=== PATIENT | female | born 1985 | race Caucasian/White ===

== ENCOUNTER 2023-11-06 15:18 | Outpatient (AMB) | payer OTHER, SELFPAY ==
--- NOTE | 2023-11-06 15:22 | MHC.PC.OV ---
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 Patient has no significant past medical history. 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 [facility] Surgical History History of section Family History Maternal Grandmother Diabetes Social History Patient Tobacco Use Status: Former Tobacco user e-Cigarette/Vaping Use: Never Used Second Hand Smoke Exposure: No service: No Current occupational status: employed Current occupation: [employer] Current occupational exposures/hazards: Yes Cognitive needs: No Hearing needs: No Vision needs: No Female Reproductive History Menstrual Date of last menstrual period: 11/06/23 Questionnaire PHQ-9 Over the last 2 weeks, how often have you been bothered by any of the following problems? 1. Little interest or pleasure in doing things: not at all 2. Feeling down, depressed, or hopeless: not at all 3. Trouble falling or staying asleep, or sleeping too much: not at all 4. Feeling tired or having little energy: more than half the days 5. Poor appetite or overeating: several days 6. Feeling bad about yourself - or that you are a failure or have let yourself or your family down: not at all 7. Trouble concentrating on things, such as reading the newspaper or watching television: not at all 8. Moving or speaking so slowly that other people could have noticed. Or the opposite - being so fidgety or restless that you have been moving around a lot more than usual: not at all 9. Thoughts that you would be better off or of hurting yourself in some way: not at all Total score: 3 Depression Screening Interpretation: Negative Depression Screening Done: Yes 31067 - PHQ-9 Billing: Yes Source: Developed by Drs. Richard Copeland, Yane Levi, Chemo Andujar and colleagues, with an educational bob from [employer]. Thrive Questionnaire Date Thrive assessed: 11/06/23 I am a: Patient What is your living situation today?: I have a steady place to live Within the past 12 months, did the food you bought not last and you didn't have the money to get more?: Never true Within the past 12 months, did you worry whether your food would run out before you got money to buy more?: Never true Do you have trouble paying for medicines?: No Do you have trouble getting transportation to medical appointments?: No Do you have trouble paying your heating and electricity bill?: No Do you have trouble taking care of your child, family member or friend?: No Do you have trouble with day-to-day activities such as bathing, preparing meals, shopping, managing finances, etc.?: No Are you currently unemployed and looking for a job?: No Are you interested in more education?: No THRIVE Score: 0 HERMELINDA-7 AMB Questionnaire HERMELINDA-7 Date HERMELINDA - 7 assessed: 11/06/23 Feeling nervous, anxious, or on edge: 2 = More than half the days Not being able to stop or control worryin = Several days Worrying too much about different things: 1 = Several days Trouble relaxin = More than half the days Being so restless that it is hard to sit still: 0 = Not at all Becoming easily annoyed or irritable: 2 = More than half the days Feeling afraid as if something awful might happen: 0 = Not at all Total HERMELINDA-7 score (0-4 normal; 5-9 mild; 10-14 moderate; 15-21 severe): 8 Source: Developed by Drs. Richard Copeland, Chemo Ninooenke and colleagues, with an educational bob from [employer]. HERMELINDA-7 Assessment Billing HERMELINDA-7 Assessment Tool: HERMELINDA-7 Assessment 88111 Review of Systems Const Details: Constitutional : No Weight loss, No Fever, No Chills, No Fatigue, No Malaise Cardiovascular : No Chest Pain, No SOB, No Dyspnea on Exertion, No Orthopnea, No Edema, No Palpitations Respiratory : No Cough, No Sputum, No Wheezing Gastrointestinal : No Nausea, No Vomiting, No Diarrhea, No Constipation, No abdominal Pain, No Hematochezia, No Melena Skin : NAdmits nevi/growth left hand. Neuro : No Weakness, No Numbness, No Dizziness, No Headache Psych : No Anxiety/Panic, No Depression All other systems reviewed and are negative Physical exam (Primary Care) Vital Signs: Last Vital Signs Pulse 67 11/06/23 15:23 BP 150/88 H 11/06/23 15:23 Pulse Ox 100 11/06/23 15:23 Oxygen Delivery Method Room Air 11/06/23 15:23 Care Plan Goal for BP management: Patient states that she has been no doctor's office and 15 years and feels nervous. Patient will take blood pressure measurements at home. Next steps: Patient will bring blood pressure log to next visit BMI result Body Mass Index 49.1 Tobacco/Smoking Status: Tobacco use Status Tobacco use date assessed 11/06/23 11/06/23 15:30 Patient Tobacco Use Status Former Tobacco user 11/06/23 15:30 e-Cigarette/Vaping Use Never Used 11/06/23 15:30 Depression Screening Interpretation: Negative Const Other: Appearance: Alert.? Oriented X3.? No acute distress.? Head: Normocephalic, atraumatic. Neck: Normal inspection.? Neck supple.? CVS: Normal heart rate and rhythm.? Pulses normal.? Respiratory: No respiratory distress.? Breath sounds normal.? Skin: Skin warm and dry.? Normal skin color.? Normal skin turgor.?Slightly raised, reddish brown macule, on left hand. Clearly defined borders. Neuro: Oriented X 3.? No motor deficit.? No sensory deficit. CN 2-12 intact Assessment and Plan Assessment & Plan (1) Atypical nevi: Comment: Patient will be given triamcinolone. Patient will also be given referral for Derm for skin check Code(s): D22.9 - Melanocytic nevi, unspecified (2) Hypertension: Comment: Patient states that her blood pressure is closer to normal at home. She will continue to take blood pressure measurements at home. Will bring record next appointment. Code(s): I10 - Essential (primary) hypertension Qualifiers: Hypertension type: unspecified Qualified Code(s): I10 - Essential (primary) hypertension Plan: Will intervene based on blood pressure measurements over the next month Plan Take your medications as prescribed. If you were prescribed antibiotics today, it is important that you take your medication to their entirety, do not skip any doses, do not finish them early. Follow-up with your primary care provider this week. Return to the emergency department with new or worsening symptoms. Such as fevers, chills, chest pain, shortness of breath, nausea, vomiting, dizziness, headache, vision changes, lethargy In case of emergency call 911 Orders: Orders Vitamin D 25-OH (D2 and D3) Today Z13.21 - Encounter for screening for nutritional disorder Vitamin B6 Today Z13.21 - Encounter for screening for nutritional disorder Vitamin B12 Today Z13.21 - Encounter for screening for nutritional disorder Comprehensive Met. Panel Today Z91.89 - Other specified personal risk factors, not elsewhere classified Complete Blood Count Auto Diff Today Z13.0 - Encounter for screening for diseases of the blood and blood-forming organs and certain disorders involving the immune mechanism UA CC w/rflx Micro + Cult Today Z13.89 - Encounter for screening for other disorder TSH reflex Free T4 Today Z13.29 - Encounter for screening for other suspected endocrine disorder Lipid Panel Today Z13.220 - Encounter for screening for lipoid disorders Referrals Dermatology Referral D22.9 - Melanocytic nevi, unspecified VE[employer]TER Referral Z12.4 - Encounter for screening for malignant neoplasm of cervix Medications: New blood pressure monitor As directed 1 ea 0RF triamcinolone acetonide 0.1% 1 appl topical DAILY 15 grams 0RF Coding Level of Care Code New Pt Level 3 (58213) Diagnoses Atypical nevi D22.9 Hypertension, unspecified type I10 Hypertension type: unspecified Additional Codes HERMELINDA-7 Assessment Billing - HERMELINDA-7 Assessment Tool: HERMELINDA-7 Assessment 21091 ([id number]) Time Spent (min) 25
[2023-11-06 15:23] VITALS: BP 150/88; PULSE 67; O2SAT 100; BMI 49.1
== END 2023-11-06 15:54 | disposition home or self-care (01) ==
PROVIDERS: PCP Nurse Practitioner Primary Care; Visit Provider Nurse Practitioner Primary Care
DX: D22.9 Melanocytic nevi, unspecified (principal); I10 Essential (primary) hypertension
CPT/HCPCS: 99203

== ENCOUNTER 2024-03-05 07:57 | Outpatient (REF) | payer OTHER, SELFPAY ==
[2024-03-05 10:16] LABS: Appearance Urine Clear; Color Urine Yellow; Glucose Urine UA Negative (Negative); Leukocyte Esterase Urine Negative (Negative); Nitrite Urine Negative (Negative); UMIC TRIGGER UACC YES; Urine Blood Trace (Negative); Urine Ketones Negative (Negative); Urine Protein Negative (Neg-Trace)
[2024-03-05 10:18] LABS: MANUAL DIFF FLAG NO
[2024-03-05 10:21] LABS: Bacteria Urine None Seen (None Seen); Hyaline Casts Urine 0-2 /LPF (0-2); RBC Urine 0-2 /HPF (0-2); WBC Urine 0-5 /HPF (0-5)
[2024-03-05 10:31] LABS: Basophils Percent Auto 0.3 % (0-2); Eosinophils Absolute Auto 0.1 X10*3/uL (0.0-0.4); Eosinophils Percent Auto 1.7 % (0-4); Hematocrit 40.8 % (37.0-47.0); Hemoglobin 13.6 g/dl (12.0-16.0); Imm Gran Abs Auto 0.05 X10*3/uL (0.00-0.03); Imm Gran Pct Auto 0.7 % (0.0-0.4); Lymphocytes Absolute Auto 2.1 X10*3/uL (1.2-4.9); Lymphocytes Percent Auto 29.8 % (20-40); Mean Corpuscular HGB Conc 33.3 g/dl (31.0-35.0); Mean Corpuscular Hemoglobin 28.5 pg (27.0-33.0); Mean Corpuscular Volume 85.4 fL (80.0-98.0); Mean Platelet Volume 9.8 fL (9.4-12.3); Monocytes Absolute Auto 0.3 X10*3/uL (0.1-1.2); Monocytes Percent Auto 4.5 % (2-11); Neutrophils Absolute Auto 4.4 x10*3/uL (2.0-8.3); Platelet Count 298 X10*3/uL (160-400); Red Blood Count 4.78 X10*6/uL (4.20-5.50); Red Cell Distribution Width 15.1 % (11.0-16.0); White Blood Count 7.1 X10*3/uL (4.8-10.8)
[2024-03-05 11:00] LABS: Alanine Aminotransferase 13 U/L (0-31); Albumin Level 4.4 g/dL (3.5-5.0); Alkaline Phosphatase 76 U/L (39-117); Anion Gap 13 (12-20); Aspartate Amino Transferase 17 U/L (5-31); Bilirubin Total 0.5 mg/dL (0.0-1.0); Blood Urea Nitrogen 8 mg/dL (9-16); Calcium 9.2 mg/dL (8.4-10.2); Carbon Dioxide 25 mmol/L (22-29); Chloride 105 mmol/L (96-108); Cholesterol 197 mg/dL (<200); Estimated Glomerular Filt Rate > 60; Glucose Random 98 mg/dL (60-115); HDL Cholesterol 41 mg/dL (>40); LDL Cholesterol Calculated 127 mg/dL (<100); Potassium 3.9 mmol/L (3.3-5.1); Sodium 139 mmol/L (135-145); Total Protein 7.5 g/dL (6.5-8.0); Triglycerides 149 mg/dL (<150)
[2024-03-05 11:01] LABS: TSH reflex Free T4 3.48 uIU/mL (0.32-4.0)
[2024-03-05 11:04] LABS: Vitamin B12 629 pg/mL (200-900)
[2024-03-09 12:38] LABS: Vitamin D 25-OH, D2 <4 ng/mL; Vitamin D 25-OH, D3 18 ng/mL; Vitamin D 25-OH, Total 18 ng/mL (30-100)
[2024-03-10 13:39] LABS: Vitamin B6 9.1 ng/mL (2.1-21.7)
== END 2024-03-05 07:58 | disposition home or self-care (01) ==
LOC: HO.HMGCLDS 07:57
PROVIDERS: PCP Nurse Practitioner Primary Care; Visit Provider Nurse Practitioner Primary Care
DX: Z13.89 Encounter for screening for other disorder (principal); Z13.21 Encounter for screening for nutritional disorder; Z13.29 Encounter for screening for other suspected endocrine disorder; Z13.220 Encounter for screening for lipoid disorders; Z13.0 Encounter for screening for diseases of the blood and blood-forming organs and certain disorders involving the immune mechanism; Z91.89 Other specified personal risk factors, not elsewhere classified
CPT/HCPCS: 36415; 80053; 80061; 81001; 82306; 82607; 84207; 84443; 85025

== ENCOUNTER 2024-03-08 15:17 | Outpatient (AMB) | payer OTHER, SELFPAY ==
--- NOTE | 2024-03-08 15:19 | A.OFFPC_ITS ---
Vital Signs 03/08/24 15:24 Height 5 ft 6 in Weight 308 lb BMI 49.7 BP 148/94 H Blood Pressure Location Rt brachial Position Sitting Pulse 107 H Pulse Source Pulse Oximeter Pulse Oximetry (%) 97 Oxygen Delivery Method Room Air Intake Visit Reasons: Annual PE Intake Note: Pt is here for annual PE. Pap due Allergies No Known Allergies Allergy (Verified 03/08/24 15:20) Tobacco use date assessed: 03/08/24 Dental Screening Dental Screen Date: 03/08/24 Did you have a dental visit in the last 12 months?: No Did you have a dental problem in the last 6 months where you did not have access to dental care?: No Was dental information given to patient?: Patient has dentist HPI HPI Comments History of Present Illness Details patient is a 38-year-old female in today for physical exam. Patient is due for Pap smear, she missed her last appointment has been educated to follow up make new appointment with them. Patient is up-to-date with Tdap. She has a past medical history significant for, Migraine- from 2-3 episodes per month. utilizes Tylenol or mild effect. Patient will be instructed to start magnesium 400 mg p.o. daily as well as given naproxen for abortive therapy. Patient will also give referral to Neurology. Atypical nevi of left hand. Patient was given derm referral but refused, instead she used wart removal which he patient states improved. Hypertension - patient was started on lisinopril 5 mg p.o. daily. Obesity- Patient would like machined parts metal sprayer referral. [facility] Surgical History No pertinent past surgical history History of section Family History Maternal Grandmother Diabetes Social History Patient Tobacco Use Status: Former Tobacco user e-Cigarette/Vaping Use: Never Used Second Hand Smoke Exposure: No service: No Current occupational status: employed Current occupation: [employer] Current occupational exposures/hazards: Yes Cognitive needs: No Hearing needs: No Vision needs: No Questionnaire PHQ-9 Over the last 2 weeks, how often have you been bothered by any of the following problems? 1. Little interest or pleasure in doing things: several days 2. Feeling down, depressed, or hopeless: several days 3. Trouble falling or staying asleep, or sleeping too much: nearly every day 4. Feeling tired or having little energy: more than half the days 5. Poor appetite or overeating: more than half the days 6. Feeling bad about yourself - or that you are a failure or have let yourself or your family down: not at all 7. Trouble concentrating on things, such as reading the newspaper or watching television: not at all 8. Moving or speaking so slowly that other people could have noticed. Or the opposite - being so fidgety or restless that you have been moving around a lot more than usual: not at all 9. Thoughts that you would be better off or of hurting yourself in some way: not at all Total score: 9 Depression Screening Interpretation: Negative Depression Screening Done: Yes 30059 - PHQ-9 Billing: Yes Source: Developed by Drs. Richard Copeland, Yane Levi, Chemo Andujar and colleagues, with an educational bob from [employer]. Thrive Questionnaire Date Thrive assessed: 11/06/23 I am a: Patient What is your living situation today?: I have a steady place to live Within the past 12 months, did the food you bought not last and you didn't have the money to get more?: Never true Within the past 12 months, did you worry whether your food would run out before you got money to buy more?: Never true Do you have trouble paying for medicines?: No Do you have trouble getting transportation to medical appointments?: No Do you have trouble paying your heating and electricity bill?: No Do you have trouble taking care of your child, family member or friend?: No Do you have trouble with day-to-day activities such as bathing, preparing meals, shopping, managing finances, etc.?: No Are you currently unemployed and looking for a job?: No Are you interested in more education?: No THRIVE Score: 0 AUDIT C Alcohol Use Questionnaire (AUDIT-C) 1. How often do you have a drink containing alcohol?: Monthly or less 2. How many drinks containing alcohol do you have on a typical day when you are drinking?: 1 or 2 3. How often do you have six or more drinks on one occasion?: Never Total Score: 1 HERMELINDA-7 AMB Questionnaire HERMELINDA-7 Date HERMELINDA - 7 assessed: 11/06/23 Feeling nervous, anxious, or on edge: 2 = More than half the days Not being able to stop or control worryin = More than half the days Worrying too much about different things: 2 = More than half the days Trouble relaxin = Several days Being so restless that it is hard to sit still: 1 = Several days Becoming easily annoyed or irritable: 2 = More than half the days Feeling afraid as if something awful might happen: 2 = More than half the days Total HERMELINDA-7 score (0-4 normal; 5-9 mild; 10-14 moderate; 15-21 severe): 12 Source: Developed by Drs. Richard Copeland, Yane Levi, Chemo Andujar and colleagues, with an educational bob from [employer]. HERMELINDA-7 Assessment Billing HERMELINDA-7 Assessment Tool: HERMELINDA-7 Assessment 77315 Review of Systems Const All systems reviewed & are unremarkable except as noted in HPI and below Physical exam (Primary Care) Vital Signs: Last Vital Signs Pulse 107 H 03/08/24 15:24 BP 148/94 H 03/08/24 15:24 Pulse Ox 97 03/08/24 15:24 Oxygen Delivery Method Room Air 03/08/24 15:24 BMI result Body Mass Index 49.7 Tobacco/Smoking Status: Tobacco use Status Tobacco use date assessed 03/08/24 03/08/24 15:29 Patient Tobacco Use Status Former Tobacco user 03/08/24 15:20 e-Cigarette/Vaping Use Never Used 03/08/24 15:20 PHQ-9: PHQ-9 Score PHQ-9: Total score 9 03/08/24 15:29 Depression Screening Interpretation: Negative Thrive Assessment: Date of Thrive Assessment Date Thrive assessed 11/06/23 03/08/24 15:20 Office Procedures Cerumen Removal From which ear canal was the cerumen removed: bilateral Removal: irrigation Notes: patient tolerated procedure well and no complications [id number] Irrigation/Lavage Results Reviewed Results Reviewed: Sodium 139 135-145 mmol/L Potassium 3.9 3.3-5.1 mmol/L CL 105 96-108 mmol/L CO2 25 22-29 mmol/L Gap 13 12-20 BUN 8 L 9-16 mg/dL Creat 0.73 0.5-1.4 mg/dL EGFR > 60 NOTE: For -[place] individuals, multiply the result by 1.210. Chronic Kidney Disease: Estimated GFR < 60 mL/min/1.73m2 Severe Kidney Disease: Estimated GFR < 15 mL/min/1.73m2 Glucose, Random 98 60-115 mg/dL CA 9.2 8.4-10.2 mg/dL Total Bili 0.5 0.0-1.0 mg/dL AST (GOT) 17 5-31 U/L ALT (GPT) 13 0-31 U/L Protein, Total 7.5 6.5-8.0 g/dL Alb 4.4 3.5-5.0 g/dL Triglyceride 149 <150 mg/dL Desirable Triglyceride: less than 150 mg/dL Borderline High Triglyceride 150-199 mg/dL High Triglyceride: 200-499 mg/dL Very High Triglyceride: greater than or equal to 5OO mg/dL Cholesterol 197 <200 mg/dL Desirable Cholesterol: less than 200 mg/dL Borderline High Cholesterol: 200-239 mg/dL High Cholesterol: greater than 239 mg/dL LDL Calculated 127 H <100 mg/dL Desirable LDL: less than 100 mg/dL Near Optimal/Above Optimal LDL: 110-129 mg/dL Borderline High LDL: 130-159 mg/dL High LDL: 160-189 mg/dL Very High LDL: greater than or equal to 190 mg/dL HDL 41 >40 mg/dL Desirable HDL: greater than 40 mg/dL Note: This HDL assay may give artificially low results in patients with liver disease. Alk Phos 76 39-117 U/L TSH 3.48 0.32-4.0 uIU/mL Assessment and Plan Assessment & Plan (1) Physical exam: Comment: Patient is due for Pap smear, she missed her last appointment has been educated to follow up make new appointment with them. Patient is up-to-date with Tdap. She has a past medical history significant for, Migraine- from 2-3 episodes per month. utilizes Tylenol or mild effect. Patient will be instructed to start magnesium 400 mg p.o. daily as well as given naproxen for abortive therapy. Patient will also give referral to Neurology. Atypical nevi of left hand. Patient was given derm referral but refused, instead she used wart removal which he patient states improved. Hypertension - patient was started on lisinopril 5 mg p.o. daily. Obesity- Patient would like machined parts metal sprayer referral. Code(s): Z00.00 - Encounter for general adult medical examination without abnormal findings (2) Migraines: Code(s): G43.909 - Migraine, unspecified, not intractable, without status migrainosus Qualifiers: Migraine type: unspecified Status migrainosus presence: without status migrainosus Intractability: not intractable Qualified Code(s): G43.909 - Migraine, unspecified, not intractable, without status migrainosus (3) Obesity: Code(s): E66.9 - Obesity, unspecified Qualifiers: Obesity type: unspecified obesity type Obesity classification: unspecified obesity classification Serious obesity comorbidity presence: without serious comorbidity Qualified Code(s): E66.9 - Obesity, unspecified (4) Hypertension: Code(s): I10 - Essential (primary) hypertension Qualifiers: Hypertension type: unspecified Qualified Code(s): I10 - Essential (primary) hypertension Orders: Orders AMB Cerumen Removal Today H61.23 - Impacted cerumen, bilateral Referrals Neurology Referral G43.909 - Migraine, unspecified, not intractable, without status migrainosus Interrelated Special Education Teacher Nutrition Referral E66.9 - Obesity, unspecified Medications: New naproxen 500 mg PO BID PRN 30 tabs 0RF pain lisinopril 5 mg PO DAILY 90 tabs 0RF Coding Level of Care Code Est Pt Prev Care 18-39y([id number]) Diagnoses Physical exam Z00.00 Migraine without status migrainosus, not intractable, unspecified migraine type G43.909 Migraine type: unspecified Status migrainosus presence: without status migrainosus Intractability: not intractable Obesity without serious comorbidity, unspecified classification, unspecified obesity type E66.9 Obesity type: unspecified obesity type Obesity classification: unspecified obesity classification Serious obesity comorbidity presence: without serious comorbidity Hypertension, unspecified type I10 Hypertension type: unspecified CPT Codes Office Procedure - CPT: 12205-Nkv Irrigation/Lavage ([id number]) Additional Codes HERMELINDA-7 Assessment Billing - HERMELINDA-7 Assessment Tool: HERMELINDA-7 Assessment 65861 ([id number])
[2024-03-08 15:24] VITALS: BP 148/94; PULSE 107; O2SAT 97; BMI 49.7
== END 2024-03-08 17:22 | disposition home or self-care (01) ==
PROVIDERS: PCP Nurse Practitioner Primary Care; Visit Provider Nurse Practitioner Primary Care
DX: Z00.00 Encounter for general adult medical examination without abnormal findings (principal); G43.909 Migraine, unspecified, not intractable, without status migrainosus; E66.9 Obesity, unspecified; Z68.42 Body mass index [BMI] 45.0-49.9, adult; H61.23 Impacted cerumen, bilateral; I10 Essential (primary) hypertension
CPT/HCPCS: 69209; 99395

== ENCOUNTER 2024-06-14 15:47 | Outpatient (AMB) | payer OTHER, SELFPAY ==
[2024-06-14 16:04] VITALS: BP 132/84; PULSE 80; O2SAT 97; BMI 49.7
--- NOTE | 2024-06-14 16:04 | A.OFFPC_ITS ---
Vital Signs 06/14/24 16:04 Height 5 ft 6 in Weight 308 lb 2 oz BMI 49.7 BP 132/84 Blood Pressure Location Lt brachial Position Sitting Pulse 80 Pulse Source Pulse Oximeter Pulse Oximetry (%) 97 Oxygen Delivery Method Room Air Intake Visit Reasons: transfer from [facility]/ HTN Intake Note: pt is here to [facility], transfer from [facility]. 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 Accompanied by: Self / Same As Patient Allergies No Known Allergies Allergy (Verified 06/14/24 16:05) Medication List - Last Reconciled 06/14/24 by PROSPER Moore acetaminophen 500 mg PO Q6H PRN amitriptyline 10 mg PO BEDTIME 30 days blood pressure monitor As directed blood pressure test kit-large As directed levonorgestrel (Mirena) intrauterine lisinopril 5 mg PO DAILY naproxen 500 mg PO BID PRN Tobacco use date assessed: 03/08/24 Dental Screening Dental Screen Date: 03/08/24 HPI transfer from [facility]/ [facility] HPI Details HTN: Blood pressure is stable, managed with lisinopril 5mg. Encouraged pt to monitor her blood pressure at home. Denies chest pain, shortness of breath, dizziness, and blurred vision. Pt c/o migraines. She reports waking up with a migraine some days. She reports sometimes feeling pressure in her forehead region the day before a migraine (and then the migraine will start in her forehead and sometimes radiate posterior). Pt does report nausea, photophobia, and sonophobia. She denies any vomiting. Will start amitriptyline 10mg. Can use naproxen for acute migraines PFSH Surgical History No pertinent past surgical history History of section Family History Maternal Grandmother Diabetes Social History Patient Tobacco Use Status: Former Tobacco user e-Cigarette/Vaping Use: Never Used Second Hand Smoke Exposure: No service: No Current occupational status: employed Current occupation: [employer] Current occupational exposures/hazards: Yes Cognitive needs: No Hearing needs: No Vision needs: No Questionnaire PHQ-9 Over the last 2 weeks, how often have you been bothered by any of the following problems? 1. Little interest or pleasure in doing things: not at all 2. Feeling down, depressed, or hopeless: several days 3. Trouble falling or staying asleep, or sleeping too much: several days 4. Feeling tired or having little energy: several days 5. Poor appetite or overeating: not at all 6. Feeling bad about yourself - or that you are a failure or have let yourself or your family down: not at all 7. Trouble concentrating on things, such as reading the newspaper or watching television: not at all 8. Moving or speaking so slowly that other people could have noticed. Or the opposite - being so fidgety or restless that you have been moving around a lot more than usual: not at all 9. Thoughts that you would be better off or of hurting yourself in some way: not at all Total score: 3 Depression Screening Interpretation: Negative Depression Screening Done: Yes 04195 - PHQ-9 Billing: Yes Source: Developed by Drs. Richard Copeland, Yane Levi, Chemo Andujar and colleagues, with an educational bob from [employer]. Thrive Questionnaire Date Thrive assessed: 06/14/24 I am a: Patient What is your living situation today?: I have a steady place to live Within the past 12 months, did the food you bought not last and you didn't have the money to get more?: Never true Within the past 12 months, did you worry whether your food would run out before you got money to buy more?: Never true Do you have trouble paying for medicines?: No Do you have trouble getting transportation to medical appointments?: No Do you have trouble paying your heating and electricity bill?: No Do you have trouble taking care of your child, family member or friend?: No Do you have trouble with day-to-day activities such as bathing, preparing meals, shopping, managing finances, etc.?: No Are you interested in more education?: No Please select the resources that you would like help with: None Currently or been in a relationship where the following occur: I choose not to answer THRIVE Score: 0 AUDIT C Alcohol Use Questionnaire (AUDIT-C) 1. How often do you have a drink containing alcohol?: Monthly or less 2. How many drinks containing alcohol do you have on a typical day when you are drinking?: 1 or 2 3. How often do you have six or more drinks on one occasion?: Less than monthly Total Score: 2 Score Reviewed/Action Taken: Yes HERMELINDA-7 AMB Questionnaire HERMELINDA-7 Date HERMELINDA - 7 assessed: 06/14/24 Feeling nervous, anxious, or on edge: 1 = Several days Not being able to stop or control worryin = Not at all Worrying too much about different things: 0 = Not at all Trouble relaxin = Not at all Being so restless that it is hard to sit still: 0 = Not at all Becoming easily annoyed or irritable: 1 = Several days Feeling afraid as if something awful might happen: 0 = Not at all Total HERMELINDA-7 score (0-4 normal; 5-9 mild; 10-14 moderate; 15-21 severe): 2 Source: Developed by Drs. Richard Copeland, Yane Levi, Chemo Andujar and colleagues, with an educational bob from [employer]. HERMELINDA-7 Assessment Billing HERMELINDA-7 Assessment Tool: HERMELINDA-7 Assessment 67172 Review of Systems Const Reports as per HPI Physical exam (Primary Care) Vital Signs: Last Vital Signs Pulse 80 06/14/24 16:04 BP 132/84 06/14/24 16:04 Pulse Ox 97 06/14/24 16:04 Oxygen Delivery Method Room Air 06/14/24 16:04 BMI result Body Mass Index 49.7 Tobacco/Smoking Status: Tobacco use Status Tobacco use date assessed 03/08/24 06/14/24 16:07 Patient Tobacco Use Status Former Tobacco user 06/14/24 16:07 e-Cigarette/Vaping Use Never Used 06/14/24 16:07 PHQ-9: PHQ-9 Score PHQ-9: Total score 3 06/14/24 16:07 Depression Screening Interpretation: Negative Thrive Assessment: Date of Thrive Assessment Date Thrive assessed 06/14/24 06/14/24 16:07 Currently or been in a relationship where the following occur: I choose not to answer Const General: cooperative Nutritional Appearance: obese morbidly obese Orientation/consciousness: patient oriented x3 Resp Effort & Inspection: normal respiratory effort Auscultation: clear to auscultation bilaterally Cardio Rate: regular rate Rhythm: regular rhythm Heart sounds: S1 normal heart sound present and S2 normal heart sound present Neuro General: patient oriented x3 Cranial nerves: Yes CN's II-XII intact bilaterally Psych Appearance: grossly normal Mental Status: mental status grossly normal Speech and movement: Normal speech and movement present Affect: normal affect Attitude: cooperative Thought process: Normal thought process present Thought content: Normal thought content present Insight: Good insight present (Psych) Judgement: Good judgement present (Psych) Coding Level of Care Code New Pt Level 3 (13739) Diagnoses Hypertension, unspecified type I10 Hypertension type: unspecified Migraine without status migrainosus, not intractable, unspecified migraine type G43.909 Intractability: not intractable Migraine type: unspecified Status migrainosus presence: without status migrainosus Additional Codes HERMELINDA-7 Assessment Billing - HERMELINDA-7 Assessment Tool: HERMELINDA-7 Assessment 13839 ([id number]) Assessment & Plan Assessment & Plan (1) Hypertension: Code(s): I10 - Essential (primary) hypertension Category: Medical Qualifiers: Hypertension type: unspecified Qualified Code(s): I10 - Essential (primary) hypertension Plan: Stable, encouraged pt to monitor BP at home (2) Migraines: Code(s): G43.909 - Migraine, unspecified, not intractable, without status migrainosus Category: Medical Qualifiers: Intractability: not intractable Migraine type: unspecified Status migrainosus presence: without status migrainosus Qualified Code(s): G43.909 - Migraine, unspecified, not intractable, without status migrainosus Plan: Starting amitriptyline Plan The patient agreed to the use of a medical office representative for this encounter. Scribed for PROSPER Connell by Carin Tan medical office representative, on 06/14/2024 at 16:35 EST. Orders: Orders Complete Blood Count Auto Diff Today G43.909 - Migraine, unspecified, not intractable, without status migrainosus, I10 - Essential (primary) hypertension Comprehensive [place]. Panel Fast Today G43.909 - Migraine, unspecified, not intractable, without status migrainosus, I10 - Essential (primary) hypertension UA CC w/rflx Micro + Cult Today G43.909 - Migraine, unspecified, not intractable, without status migrainosus, I10 - Essential (primary) hypertension TSH reflex Free T4 Today G43.909 - Migraine, unspecified, not intractable, without status migrainosus, I10 - Essential (primary) hypertension Lipid Panel Today G43.909 - Migraine, unspecified, not intractable, without status migrainosus, I10 - Essential (primary) hypertension Medications: New amitriptyline 10 mg PO BEDTIME 30 days 30 tabs 3RF
== END 2024-06-14 16:47 | disposition home or self-care (01) ==
PROVIDERS: PCP Nurse Practitioner Primary Care; Visit Provider Nurse Practitioner Family
DX: I10 Essential (primary) hypertension (principal); G43.909 Migraine, unspecified, not intractable, without status migrainosus

== ENCOUNTER → 2024-06-14 15:47 | Outpatient (BNVA) | payer OTHER, SELFPAY | PROVIDERS: PCP Nurse Practitioner Primary Care; Visit Provider Nurse Practitioner Family | DX: I10 Essential (primary) hypertension (principal); G43.909 Migraine, unspecified, not intractable, without status migrainosus | CPT/HCPCS: 96127; 99202 ==

== ENCOUNTER 2024-09-27 07:49 | Outpatient (AMB) | payer OTHER, SELFPAY ==
--- NOTE | 2024-09-27 07:14 | A.OFFVIS_ITS ---
Intake Visit Reasons: anxiety Allergies No Known Allergies Allergy (Verified 09/27/24 07:17) Medication List - Last Reconciled 09/27/24 by CRYSTAL Moore- acetaminophen 500 mg PO Q6H PRN blood pressure monitor As directed blood pressure test kit-large As directed clotrimazole-betamethasone 1-0.05 % 1 appl topical BID PRN 2 weeks levonorgestrel (Mirena) intrauterine lisinopril 5 mg PO DAILY 30 days naproxen 500 mg PO BID PRN propranolol ER 60 mg PO DAILY HPI HPI anxiety: Details: History of Present Illness The patient is a 38-year-old female presenting with high blood pressure and increased anxiety. Recently, she started experiencing elevated blood pressure readings at home, which she suspects may be due to inaccuracies with her home blood pressure cuff. Her pharmacy delayed the start of her new medication, propranolol 60 mg extended release, which she began today. Additionally, she is already on lisinopril 5 mg for blood pressure management. The episodes of increased anxiety prompted her telehealth visit today, as well as the elevated BPs. She denies having symptoms such as chest pains, shortness of breath, headaches, or blurred vision. There is no mention of previous testing or changes to medication regimens. She appears to be in good spirits currently and denies any suicidal or homicidal ideation. encouraged her to get her labs drawn which were ordered back in June of 2024 Review of Systems - Cardiovascular: Denies chest pains. - Respiratory: Denies shortness of breath. - Neurologic: Denies headaches, blurred vision. - Psychiatric: Denies suicidal ideation, homicidal ideation. PE: A+Ox3 in no acute distress pleasant, smiling Plan - The patient will begin propranolol 60 mg ER today for anxiety and blood pressure control, as previously prescribed. - Continue current lisinopril 5 mg for hypertension management. - Arrange for manual blood pressure measurements by a family member with a medical background to verify accuracy of home readings. - Schedule a follow-up appointment in one to one and a half weeks for a blood pressure check in the office. Patient was informed and verbally consented to the use of an ambient scribe for clinic note documentation during this visit. Discussion Notes I discussed with the patient the need to verify the accuracy of her blood pressure readings, given the possibility of inaccuracies with her current home blood pressure cuff. The importance of starting propranolol immediately was emphasized, as it should aid in addressing both her elevated blood pressure and anxiety. We discussed continuing lisinopril therapy and the plans for manual blood pressure checks to ensure accurate assessment before her next office visit. There was no mention of additional diagnostic studies or procedures necessary at this time. We agreed upon a follow-up timeframe to reassess her blood pressure management and response to the new medication. Patient Instructions - Start propranolol 60 mg ER as instructed today. - Continue taking lisinopril 5 mg daily. - Have your blood pressure checked manually by a medically trained family member. - Monitor your symptoms and seek care if you experience chest pains, shortness of breath, headaches, or blurred vision. - Follow up in the office for a blood pressure check in about one to one and a half weeks. [facility] Surgical History No pertinent past surgical history History of section Family History Maternal Grandmother Diabetes Social History Patient Tobacco Use Status: Former Tobacco user e-Cigarette/Vaping Use: Never Used Second Hand Smoke Exposure: No service: No Current occupational status: employed Current occupation: [employer] Current occupational exposures/hazards: Yes Cognitive needs: No Hearing needs: No Vision needs: No Telehealth Telehealth Telehealth Platform: [facility] Location of provider rendering services: practice address Location of patient: address on file Patient Identification confirmed using: Name, : Yes Telehealth method: video Patient verbally consented to treatment: Yes Patient verbally consented to billing insurance company: Yes Patient informed of any privacy concerns related to visit: Yes Minutes spent on Phone/Video with Pt.: 10 Assessment & Plan Assessment & Plan (1) Hypertension: Code(s): I10 - Essential (primary) hypertension Category: Medical Qualifiers: Hypertension type: unspecified Qualified Code(s): I10 - Essential (primary) hypertension (2) Anxiety: Code(s): F41.9 - Anxiety disorder, unspecified Category: Medical Plan: . Plan . Medications: Changed From lisinopril 5 mg PO DAILY 90 tabs 0RF To lisinopril 5 mg PO DAILY 30 days 30 tabs 2RF Coding Level of Care Code Tele Est Pt Level 3 (29163) Diagnoses Hypertension, unspecified type I10 Hypertension type: unspecified Anxiety F41.9
== END 2024-09-27 08:37 | disposition home or self-care (01) ==
LOC: HO.HMCC 07:49
PROVIDERS: PCP Nurse Practitioner Family; Visit Provider Nurse Practitioner Family
DX: I10 Essential (primary) hypertension (principal); F41.9 Anxiety disorder, unspecified

== ENCOUNTER 2024-10-02 09:06 | Outpatient (REF) | payer OTHER, SELFPAY ==
[2024-10-02 11:35] LABS: Appearance Urine Clear; Color Urine Yellow; Glucose Urine UA Negative (Negative); Leukocyte Esterase Urine Negative (Negative); Nitrite Urine Negative (Negative); Specific Gravity - Urine 1.025 (1.005-1.025); Urine Blood Negative (Negative); Urine Ketones Negative (Negative); Urine Protein Negative (Neg-Trace)
[2024-10-02 11:56] LABS: MANUAL DIFF FLAG NO
[2024-10-02 12:02] LABS: Basophils Percent Auto 0.3 % (0-2); Eosinophils Absolute Auto 0.1 X10*3/uL (0.0-0.4); Eosinophils Percent Auto 1.4 % (0-4); Hematocrit 42.7 % (37.0-47.0); Hemoglobin 14.4 g/dl (12.0-16.0); Imm Gran Abs Auto 0.06 X10*3/uL (0.00-0.03); Imm Gran Pct Auto 0.6 % (0.0-0.4); Lymphocytes Absolute Auto 2.4 X10*3/uL (1.2-4.9); Lymphocytes Percent Auto 23.7 % (20-40); Mean Corpuscular HGB Conc 33.7 g/dl (31.0-35.0); Mean Corpuscular Hemoglobin 30.2 pg (27.0-33.0); Mean Corpuscular Volume 89.5 fL (80.0-98.0); Monocytes Absolute Auto 0.5 X10*3/uL (0.1-1.2); Neutrophils Absolute Auto 6.8 x10*3/uL (2.0-8.3); Platelet Count 293 X10*3/uL (160-400); Red Blood Count 4.77 X10*6/uL (4.20-5.50); Red Cell Distribution Width 13.1 % (11.0-16.0); White Blood Count 9.9 X10*3/uL (4.8-10.8)
[2024-10-02 12:24] LABS: Alanine Aminotransferase 16 U/L (0-31); Albumin Level 4.2 g/dL (3.5-5.0); Alkaline Phosphatase 76 U/L (39-117); Anion Gap 11 (12-20); Aspartate Amino Transferase 23 U/L (5-31); Bilirubin Total 0.6 mg/dL (0.0-1.0); Blood Urea Nitrogen 11 mg/dL (9-16); Calcium 9.2 mg/dL (8.4-10.2); Carbon Dioxide 24 mmol/L (22-29); Chloride 107 mmol/L (96-108); Cholesterol 193 mg/dL (<200); Estimated Glomerular Filt Rate > 60; Glucose Fasting 89 mg/dL (60-99); HDL Cholesterol 38 mg/dL (>40); LDL Cholesterol Calculated 128 mg/dL (<100); Potassium 4.7 mmol/L (3.3-5.1); Sodium 137 mmol/L (135-145); Total Protein 7.5 g/dL (6.5-8.0); Triglycerides 138 mg/dL (<150)
[2024-10-02 12:43] LABS: TSH reflex Free T4 2.99 uIU/mL (0.32-4.0)
== END 2024-10-02 09:07 | disposition home or self-care (01) ==
LOC: HO.HMGCLDS 09:06
PROVIDERS: PCP Nurse Practitioner Family; Visit Provider Nurse Practitioner Family
DX: G43.909 Migraine, unspecified, not intractable, without status migrainosus (principal); I10 Essential (primary) hypertension
CPT/HCPCS: 36415; 80053; 80061; 81003; 84443; 85025

== ENCOUNTER 2024-10-04 13:50 | Outpatient (AMB) | payer OTHER, SELFPAY ==
--- NOTE | 2024-10-04 13:55 | A.OFFVIS_ITS ---
Vital Signs 10/04/24 13:56 Height 5 ft 6 in Weight 318 lb 2 oz BMI 51.3 BP 152/90 H Blood Pressure Location Rt brachial Position Sitting Pulse 70 Pulse Source Pulse Oximeter Pulse Oximetry (%) 97 Oxygen Delivery Method Room Air Intake Visit Reasons: [id number], unspecified, not intractable Pest Technician Required: No Accompanied by: Self / Same As Patient Allergies No Known Allergies Allergy (Verified 10/04/24 13:59) Medication List - Last Reconciled 10/04/24 by CRYSTAL Hager acetaminophen 500 mg PO Q6H PRN blood pressure monitor As directed blood pressure test kit-large As directed clotrimazole-betamethasone 1-0.05 % 1 appl topical BID PRN 2 weeks levonorgestrel (Mirena) intrauterine lisinopril 5 mg PO DAILY 30 days naproxen 500 mg PO BID PRN propranolol ER 60 mg PO DAILY Do you need a note to return to daycare/school/sports/work: No HPI Comments Details: Right-handed 38-yr-old female presents for new pt evaluation of headache disorder. Pt reports she she had headache as long as she can remember. Attacks per month She had been having near daily migraine attacks, however after being started on lisinopril for HTN Tx, the migraine attacks have decreased to proximally 4-5 Her migraine attacks per month. When severe, the migraine attacks take her out . She has never seen neurology before. PMH and ROS are notable for:? General: not right in space dizziness w/wo JEFFERS, motion sickness when she is the passenger in a car. ENT: vision is horrible - i need glasses - does not have an certifier Musculoskeletal disorders or injury: sometimes mid-back pain History of concussion/head injury: Denies Mood d/o: Anxiety, PTSD- rough childhood , ADHD- dx'd as a child- not on tx. No current therapist or psychiatrist. Respiratory d/o: denies CV disease: HTN- just started Propranolol ER 60mg qam, in addition to lisinopril. Has family h/o HTN. Clotting or hematology d/o: Denies Endocrine or metabolic d/o: Denies History of seizure: Denies. 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 Family planning: none. Has 2 children (13 and 7 yrs old- both w/ epidural) Family history of migraine or other headache disorder: Father, paternal aunt and uncle, son. Lifestyle considerations: Sleep routine: Usual bedtime: 7-8pm and wake-up time: 5am Sleep difficulties: Endorses: frequent arousals, Snoring, Fatigue, Gasping Arousals, Restless sleep- at onset of lsepe or wakes her up, Leg Cramps- sometimes. Caffeine use: 1.5 cups of coffee per day Substance use: Alcohol- rare, social- prone to flushing from alcohol. 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 Headache questionnaire:? Age/time of onset: childhood Preceding causes: None Previous work-up: None Typical headache characteristics: Prodrome symptoms: Unknown Aura: during severe attacks sees squiggly lines (worms) Pain intensity: moderate-severe Location, quality, characteristics: Starts as a pressure in bilateral occipital region or retro-orbital region. Associated symptoms: photophobia, phonophobia, rarely allodynia, nausea, not right in space dizziness, lightheadedness, fatigue, cognitive difficulties, activity intolerance, generalized weakness, sometimes left eye watering, heart beat pulsating tinnitus. During a headache, having a BM, moving from sitting to standing, or bending over- increases the head pressure. Patient states this positional component started after she had her children and her weight increased. Generally feels better laying down, but this can trigger increased temporal scalp pain- different from the pressure headache. Postdrome: Faded away slowly over a couple of days Triggers: poor sleep, poor fluid intake, skipping caffeine, stress, menstruation- even with mirena in place, hair being up too long Time of day: No specific time of day Duration and Frequency: Prior to starting Lisiniprol, daily to every other day or last a few days. Since, 4-5 times a month, which lasts 1-1.5 days. How does headache impact your life? Has difficulty completing her daily tasks. Current acute medication use/interventions: Naproxen 500mg bid or Tylenol 2000mg tid prn. Current preventative medication use: Lisinopril 5mg qd and just started Propranolol ER 60mg qam. Non-pharmacological interventions: Runs cold water over his wrists. [facility] Medical History (Updated 10/04/24 @ 20:22 by CRYSTAL Hager) Menorrhagia Surgical History No pertinent past surgical history History of section Family History Maternal Grandmother Diabetes Social History Patient Tobacco Use Status: Former Tobacco user e-Cigarette/Vaping Use: Never Used Second Hand Smoke Exposure: No service: No Current occupational status: employed Current occupation: [employer] Current occupational exposures/hazards: Yes Cognitive needs: No Hearing needs: No Vision needs: No Physical Exam Vital Signs: Last Vital Signs Pulse 70 10/04/24 13:56 BP 152/90 H 10/04/24 13:56 Pulse Ox 97 10/04/24 13:56 Oxygen Delivery Method Room Air 10/04/24 13:56 BMI result Body Mass Index 51.3 Const Orientation/consciousness: patient oriented x3 Resp Effort & Inspection: normal respiratory effort and able to speak in complete sentences Neuro Other: No palpable scalp tenderness. Mallampati stage IV Mild bilateral TMJ tightness, slightly more so on left. General: patient oriented x3 Cranial nerves: Yes CN's II-XII intact bilaterally, Yes Bilaterally intact EOM present (With mild poor convergence) and Yes Nystagmus not present Cognition (Neuro): normal cognition Gait exam (Neuro): Normal gait present Motor exam (neuro): 5/5 motor strength present throughout Deep tendon reflexes (DTR's): Right triceps reflex intensity grade: 2+, Left triceps reflex intensity grade: 2+, Rt Biceps (C5, C6): 2+, Left biceps reflex intensity grade: 2+, Right brachioradialis reflex intensity grade: 2+, Left brachioradialis reflex intensity grade: 2+, Right patellar reflex intensity grade: 2+ and Left patellar reflex intensity grade: 2+ Coordination: [id number] test normal, tandem gait normal and Romberg test negative Pupils: Normal pupillary reactivity/response: bilateral Psych Appearance: grossly normal Mental Status: mental status grossly normal Speech and movement: Normal speech and movement present Affect: normal affect Attitude: cooperative Thought process: Normal thought process present Assessment & Plan Assessment & Plan (1) Positional headache: Code(s): R51.0 - Headache with orthostatic component, not elsewhere classified Category: Medical (2) Vision changes: Code(s): H53.9 - Unspecified visual disturbance Category: Medical (3) Migraine with aura: Comment: Visual aura of seeing squiggly lines when migraine attack is severe Code(s): G43.109 - Migraine with aura, not intractable, without status migrainosus Category: Medical (4) Sleep difficulties: Code(s): G47.9 - Sleep disorder, unspecified Category: Medical (5) Hypersomnia: Code(s): G47.10 - Hypersomnia, unspecified Category: Medical (6) Snoring: Code(s): R06.83 - Snoring Category: Medical (7) Pulsatile tinnitus: Code(s): H93.A9 - Pulsatile tinnitus, unspecified ear Category: Medical (8) Restless leg syndrome: Code(s): G25.81 - Restless legs syndrome Category: Medical (9) Hypertension: Code(s): I10 - Essential (primary) hypertension Category: Medical Qualifiers: Hypertension type: unspecified Qualified Code(s): I10 - Essential (primary) hypertension (10) Obesity: Code(s): E66.9 - Obesity, unspecified Category: Medical Qualifiers: Obesity type: unspecified obesity type Obesity classification: unspecified obesity classification Serious obesity comorbidity presence: without serious comorbidity Qualified Code(s): E66.9 - Obesity, unspecified Plan Pt advised to undergo: Brain MRI with and without contrast to assess for secondary etiologies of positional headache a/w pulsatile tinnitus, vision change, weight gain, history of epidural x2, such as low versus high pressure CSF headache. Patient requests open MRI, we will order as such with alprazolam 0.25 mg 30 minutes before MRI (may repeat x1). In-lab PSG (sleep study) to assess for sleep apnea and PLMS. Fasting blood work/labs for common etiologies of restless legs syndrome s/s. Comprehensive eye exam to assess for intracranial etiologies of vision change, such as papilledema. For overall headache management: * Optimize good self-care, including but not limited to maintaining a healthy diet, adequate fluid intake, adequate sleep, and engaging in regular physical activity. * Track headaches, especially after treatment regimen changes. Migraine [employer] is one of many headache tracking apps. * Information shared on non-pharmacological interventions which may help to alleviate headache attack burden. For light sensitivity: Consider trying blue light filtering glasses, green glasses, green light therapy. For sound sensitivity: Consider trying noise cancellation ear plugs. Neuromodulation devices: which can be used alone or along with pharmacological treatment. For acute headache treatment: It is important to take as needed medications at the first sign of headache, however try to avoid acute medication overuse. Hold NSAIDs (such as ibuprofen, naproxen) for now due to high blood pressure. Trial Rimegepant ODT (Nurtec ODT) 75mg, 1 tab at onset of headache.. Max of 1 tab (75mg) per 24 hours. May take Nurtec with OTC Tylenol 650-1000mg q 4-6 hours as needed. Try to limit Tylenol use to less than 3000 mg per day, on no more than 15 days per month. Potential adverse effects of Nurtec include, but are not limited to fatigue, nausea, dry mouth, constipation. Previous acute migraine medication trials: Tylenol and naproxen-ineffective. Acute migraine medication contraindications: All NSAIDs, triptans, and DHE due to uncontrolled hypertension. For headache prevention medication: Preventative medications should be taken routinely as prescribed for best effect, it may take several weeks for full effect to take effect. Continue lisinopril 5 mg daily in the morning. Increase Propranolol ER 60 mg to propranolol ER 80 mg daily at bedtime. Potential side effects propranolol include but are not limited to fatigue, lightheadedness, low blood pressure, low heart rate, asthma/respiratory disease exacerbation, weight gain, hair loss, sexual dysfunction. Previous migraine prevention medication trials: Amitriptyline 10 mg q.h.s.-not tolerated, caused excess sedation. Migraine prevention medication contraindications: Depakote d/t patient is a female of child-bearing age. Pt seen in collaboration w/ Dr Dot Nguyen. Will follow-up upon review of above and patient to follow-up in clinic in 3-4 months or sooner prn. Orders: Orders Vitamin B12 and Folate Today E66.9 - Obesity, unspecified, G25.81 - Restless legs syndrome, N92.0 - Excessive and frequent menstruation with regular cycle Erythrocyte Sedimentation Rate Today E66.9 - Obesity, unspecified, G25.81 - Restless legs syndrome, N92.0 - Excessive and frequent menstruation with regular cycle Vitamin D 25-OH (D2 and D3) Today E66.9 - Obesity, unspecified, G25.81 - Restless legs syndrome, N92.0 - Excessive and frequent menstruation with regular cycle RT PSG in-lab sleep study Today G25.81 - Restless legs syndrome, G47.10 - Hypersomnia, unspecified, G47.9 - Sleep disorder, unspecified, R06.83 - Snoring Ferritin Today E66.9 - Obesity, unspecified, G25.81 - Restless legs syndrome, N92.0 - Excessive and frequent menstruation with regular cycle IRON PROFILE Today E66.9 - Obesity, unspecified, G25.81 - Restless legs syndrome, N92.0 - Excessive and frequent menstruation with regular cycle CRP High Sensitivity Today E66.9 - Obesity, unspecified, G25.81 - Restless legs syndrome, N92.0 - Excessive and frequent menstruation with regular cycle Magnesium Today E66.9 - Obesity, unspecified, G25.81 - Restless legs syndrome, N92.0 - Excessive and frequent menstruation with regular cycle MR head/brain wo/w con Today E66.9 - Obesity, unspecified, H53.9 - Unspecified visual disturbance, H93.A9 - Pulsatile tinnitus, unspecified ear, I10 - Essential (primary) hypertension, R51.0 - Headache with orthostatic component, not elsewhere classified Referrals Ophthalmology Referral E66.9 - Obesity, unspecified, G43.909 - Migraine, unspecified, not intractable, without status migrainosus, H53.9 - Unspecified visual disturbance, I10 - Essential (primary) hypertension, R51.0 - Headache with orthostatic component, not elsewhere classified Medications: New propranolol ER 80 mg PO BEDTIME 30 caps 1RF 30 days rimegepant (Nurtec ODT) 75 mg PO ONCE PRN 16 tabs 3RF migraine headache 30 days MDD 1 tab alprazolam 0.25 mg orally 1 tab 30 minutes prior to MRI, may repeat x's 1; 2 tabs 0RF 1 day Discontinued propranolol ER Discontinued Reason: Doctor's Order 60 mg PO DAILY 90 caps 0RF Coding Level of Care Code New Pt Level 4 (53122) Diagnoses Positional headache R51.0 Vision changes H53.9 Migraine with aura G43.109 Sleep difficulties G47.9 Hypersomnia G47.10 Snoring R06.83 Pulsatile tinnitus H93.A9 Restless leg syndrome G25.81 Hypertension, unspecified type I10 Hypertension type: unspecified Obesity without serious comorbidity, unspecified classification, unspecified obesity type E66.9 Obesity type: unspecified obesity type Obesity classification: unspecified obesity classification Serious obesity comorbidity presence: without serious comorbidity
[2024-10-04 13:56] VITALS: BP 152/90; PULSE 70; O2SAT 97; BMI 51.3
--- OUTSIDE RECORDS SUMMARY | 2024-10-04 15:19 | XMS_ITS | Clinical Summary ---
Author Organization [facility] it Address [address] [place] [address] Care Team Providers Care Insulation Mechanic Name Role Phone Unavailable Primary Care Provider Unavailabl e Social History Tobacco Use Types Packs/Day Years Used Date Smoking Tobacco: Never Assessed Sex and Gender Information Value Date Recorded Sex Assigned at Not on file Gender Identity Not on file Sexual Orientation Not on file Plan of Treatment Health Maintenance Due Date Last Done Comments Hepatitis B Vaccines (1 of 3 - 19+ 3-dose series) 11/23/2006 Cervical Cancer Screening: P ap Smear 11/23/2008 COVID-19 Vaccine ( - 2023-2 5 season) 2024 Influenza Vaccine (#1) 2024 DTaP,Tdap,and Td Vaccines (2 - Td or Tdap) 02/07/2027 02/07/2017 HIB Vaccines Aged Out No longer eligi ble based on patient's age to complete this topic HPV Vaccines Aged Out No longer eligi ble based on patient's age to complete this topic Hepatitis A Vaccines Aged Out No long er eligible based on patient's age to complete this topic IPV Vaccines Aged Out No longer eligi ble based on patient's age to complete this topic MMR Vaccines Aged Out No longer eligi ble based on patient's age to complete this topic Meningococcal ACWY Vaccine Aged Out N o longer eligible based on patient's age to complete this topic Pneumococcal Vaccine: Pediat rics (0 to 5 Years) and At-Risk Patients (6 to 64 Years) Aged Out No longer eligi ble based on patient's age to complete this topic RSV Immunization Patients Un jolene 20 months Aged Out No longer eligible b ased on patient's age to complete this topic Varicella Vaccines Aged Out No longer eligible based on patient's age to complete this topic
== END 2024-10-04 15:12 | disposition home or self-care (01) ==
PROVIDERS: PCP Nurse Practitioner Primary Care; Visit Provider Nurse Practitioner Family
DX: R51.0 Headache with orthostatic component, not elsewhere classified (principal); H53.9 Unspecified visual disturbance; G43.109 Migraine with aura, not intractable, without status migrainosus; G47.9 Sleep disorder, unspecified; G47.10 Hypersomnia, unspecified; R06.83 Snoring; H93.A9 Pulsatile tinnitus, unspecified ear; G25.81 Restless legs syndrome; I10 Essential (primary) hypertension; E66.9 Obesity, unspecified
CPT/HCPCS: 99204

== ENCOUNTER → 2024-10-04 13:50 | Outpatient (BNVA) | payer OTHER, SELFPAY | PROVIDERS: PCP Nurse Practitioner Primary Care; Visit Provider Nurse Practitioner Family | DX: G43.109 Migraine with aura, not intractable, without status migrainosus (principal); G47.9 Sleep disorder, unspecified; G47.10 Hypersomnia, unspecified; G25.81 Restless legs syndrome; H53.9 Unspecified visual disturbance; H93.A9 Pulsatile tinnitus, unspecified ear; R51.0 Headache with orthostatic component, not elsewhere classified; R06.83 Snoring; I10 Essential (primary) hypertension; E66.9 Obesity, unspecified; Z68.43 Body mass index [BMI] 50.0-59.9, adult | CPT/HCPCS: 99202 ==

== ENCOUNTER → 2024-10-29 10:14 | Outpatient (BNV) | payer OTHER, SELFPAY | PROVIDERS: PCP Nurse Practitioner Family; Visit Provider Radiology Diagnostic Radiology | DX: R51.0 Headache with orthostatic component, not elsewhere classified (principal) | CPT/HCPCS: 70553 ==

== ENCOUNTER 2024-10-29 10:22 | Outpatient (REF) | payer OTHER, SELFPAY ==
--- NOTE | ~2024-10-29 | MR_ITS ---
CLINICAL HISTORY: R51.0 - Headache with orthostatic component, not elsewhere classified MR of the brain with and without contrast Comparison: None Findings: No acute infarction, hemorrhage, mass-effect or herniation. No abnormal enhancement. No hydrocephalus. Signal intensity is within normal limits for patient's age. No extra-axial fluid collection or mass. Enlarged partially empty sella turcica. The pituitary gland is diminished in size, measuring 3 mm in craniocaudal dimension. Intact flow voids. Normal orbits. Mild mucosal thickening in the ethmoid air cells. Otherwise clear paranasal sinuses and mastoid air cells. Unremarkable osseous structures. Impression: Partially empty sella turcica without other findings. Correlate clinically for signs/symptoms of idiopathic intracranial hypertension. This document has been electronically signed by: Michelle Parson MD on 11/01/2024 21:40:00
[2024-10-29] MEDS: gadobutroL 10 ML VIAL IVPUSH (11:10)
--- OUTSIDE RECORDS SUMMARY | 2024-10-29 11:44 | XMS_ITS | Clinical Summary ---
Author Organization [facility] it Address [address] [place] [address] Care Team Providers Care Rivet Maker Name Role Phone Unavailable Primary Care Provider Unavailabl e Social History Tobacco Use Types Packs/Day Years Used Date Smoking Tobacco: Never Assessed Comments Unknown Sex and Gender Information Value Date Recorded Sex Assigned at Not on file Legal Sex Female 4:24 PM EST Gender Identity Not on file Sexual Orientation [...] patient's age to complete this topic Meningococcal B Vacine Aged Out No lo nger eligible based on patient's age to complete [...]
== END 2024-10-29 10:23 | disposition home or self-care (01) ==
LOC: HO.MRI 10:22
PROVIDERS: PCP Nurse Practitioner Family; Visit Provider Nurse Practitioner Family
DX: R51.0 Headache with orthostatic component, not elsewhere classified (principal); H53.9 Unspecified visual disturbance; H93.A9 Pulsatile tinnitus, unspecified ear; E66.9 Obesity, unspecified; I10 Essential (primary) hypertension
CPT/HCPCS: 70553; A9585

== ENCOUNTER → 2024-11-18 16:18 | Outpatient (BNVA) | payer OTHER, SELFPAY | PROVIDERS: PCP Nurse Practitioner Family ==

== ENCOUNTER → 2024-12-23 10:48 | Outpatient (REF) | payer OTHER, SELFPAY ==
--- OUTSIDE RECORDS SUMMARY | 2024-12-23 12:42 | XMS_ITS | Clinical Summary ---
Author Organization [facility] it Address [address] [place] [address] Care Team Providers Care Cleaning Team Member Name Role Phone Unavailable Primary Care Provider [...] - 2023-2 5 season) 2024 Influenza Vaccine (Season Ended) 2025 DTaP,Tdap,and Td Vaccines (2 - Td or [...] age to complete this topic Meningococcal B Vaccine Aged Out No l onger eligible based on patient's age to complete [...]
== END ==
LOC: HO.SL 10:48
PROVIDERS: PCP Nurse Practitioner Family; Visit Provider Nurse Practitioner Family
DX: R06.83 Snoring (principal); G47.10 Hypersomnia, unspecified; G47.9 Sleep disorder, unspecified
CPT/HCPCS: 95806

== ENCOUNTER → 2024-12-23 10:57 | Outpatient (BNV) | payer OTHER, SELFPAY | PROVIDERS: PCP Nurse Practitioner Family; Visit Provider Psychiatry & Neurology Neurology | DX: R06.83 Snoring (principal); G47.10 Hypersomnia, unspecified | CPT/HCPCS: 95806 ==

== ENCOUNTER 2024-12-30 08:29 | Outpatient (AMB) | payer OTHER, SELFPAY ==
[2024-12-30 08:32] VITALS: BP 132/80; PULSE 64; O2SAT 100; BMI 51.8
--- NOTE | 2024-12-30 08:32 | A.OFFPC_ITS ---
Vital Signs 12/30/24 08:32 Height 5 ft 6 in Weight 321 lb BMI 51.8 BP 132/80 Blood Pressure Location Lt brachial Position Sitting Pulse 64 Pulse Source Pulse Oximeter Pulse Oximetry (%) 100 Oxygen Delivery Method Room Air Intake Visit Reasons: 3m follow up, HTN/anxiety French Folder Required: No Accompanied by: Self / Same As Patient Allergies amitriptyline Adverse Reaction (Severe, Verified 12/30/24 08:37) Nightmare propranolol Adverse Reaction (Intermediate, Verified 12/30/24 08:37) Unknown Tobacco use date assessed: 12/30/24 Dental Screening Dental Screen Date: 12/30/24 Did you have a dental visit in the last 12 months?: Yes Did you have a dental problem in the last 6 months where you did not have access to dental care?: No Was dental information given to patient?: Patient has dentist HPI 3m follow up, HTN/anxiety HPI Details Chief Complaint The patient presents for follow-up of anxiety and hypertension. History of Present Illness The patient is a 39-year-old female presenting with a follow-up for anxiety and hypertension. Blood pressure readings have been consistent and stable both in the clinic and at home. She denies experiencing chest pain, dyspnea, headaches, blurred vision, or dizziness. Anxiety symptoms have improved following the commencement of a beta-bran, which was also prescribed for hypertension. She is morbidly obese and was advised to pursue weight loss to improve overall health. Social History - The patient was encouraged to focus on weight loss as part of her health management. Health Maintenance - Encouraged weight loss to support over all health. Review of Systems - Cardiovascular: Denies chest pain. - Respiratory: Denies shortness of breat h. - Neurological: Denies headaches, blurre d vision, dizziness. -psych: denies any si or hi Physical Exam General: Cooperative, healthy appearing, comfortable, no acute distress and well developed Orientation: Patient oriented x3 Limitations: No limitations Head: Normal to inspection Ears: Hearing grossly normal bilaterally Nose: Normal external nose present Face and sinus: Normal facial exam Eyes: Appearance normal, both eyes and all related structures Neck: Normal visual inspection and Yes full ROM Respiratory: Normal respiratory effort and able to speak in complete sentences. Clear to auscultation bilaterally Cardiovascular: Regular rate and rhythm. Normal S1 and S2 GI: Normal to inspection. Soft to palpation and nontender Skin: No rashes or lesions noted Neuro: Patient oriented x3 Extremities: Normal to inspection Results Plan The patient should continue the beta-bran as prescribed for anxiety and hypertension management. Her blood pressure remains stable, correlating with at- home readings. The beta-bran has shown effectiveness in anxiety control, so we will maintain the current medication regimen and monitor progress. Given the patient's obesity, weight loss was emphasized, and lifestyle modifications to support this were recommended. Regular follow-ups will ensure that her progress is monitored and any necessary adjustments are made timely. Discussion Notes I explained to the patient the importance of continuing her beta-bran for both hypertension and anxiety, highlighting its effectiveness seen so far. The risks of discontinuing or altering her medication were discussed, including the potential return of anxiety symptoms and blood pressure instability. I also discussed the potential health benefits of weight loss, recommending lifestyle changes to incorporate healthier habits. We agreed to continue close monitoring through regular follow-ups to evaluate her health management. Patient Instructions - Continue taking your beta-bran as p rescribed. - Monitor your blood pressure at home re gularly. - Focus on healthy lifestyle changes to achieve weight loss. - Follow up for regular check-ups as karmen eduled. - Contact the clinic if you experience a ny new symptoms. PFSH Medical History Menorrhagia Surgical History No pertinent past surgical history History of section Family History Maternal Grandmother Diabetes Social History Housing: House Patient Tobacco Use Status: Former Tobacco user e-Cigarette/Vaping Use: Never Used Second Hand Smoke Exposure: No service: No Current occupational status: employed Current occupation: [employer] Current occupational exposures/hazards: Yes Cognitive needs: No Hearing needs: No Vision needs: No Questionnaire PHQ-9 Over the last 2 weeks, how often have you been bothered by any of the following problems? 1. Little interest or pleasure in doing things: not at all 2. Feeling down, depressed, or hopeless: several days 3. Trouble falling or staying asleep, or sleeping too much: more than half the days 4. Feeling tired or having little energy: several days 5. Poor appetite or overeating: more than half the days 6. Feeling bad about yourself - or that you are a failure or have let yourself or your family down: several days 7. Trouble concentrating on things, such as reading the newspaper or watching television: several days 8. Moving or speaking so slowly that other people could have noticed. Or the opposite - being so fidgety or restless that you have been moving around a lot more than usual: not at all 9. Thoughts that you would be better off or of hurting yourself in some way: not at all Total score: 8 Depression Screening Interpretation: Positive Depression Screening Follow-up: Existing condition and Declines treatment Depression Screening Done: Yes 36711 - PHQ-9 Billing: Yes Source: Developed by Drs. Richard Copeland, Yane Levi, Chemo Andujar and colleagues, with an educational bob from [employer]. Thrive Questionnaire Date Thrive assessed: 12/30/24 I am a: Patient What is your living situation today?: I have a steady place to live Within the past 12 months, did the food you bought not last and you didn't have the money to get more?: Never true Within the past 12 months, did you worry whether your food would run out before you got money to buy more?: Never true Do you have trouble paying for medicines?: No Do you have trouble getting transportation to medical appointments?: No Do you have trouble paying your heating and electricity bill?: No Do you have trouble taking care of your child, family member or friend?: No Do you have trouble with day-to-day activities such as bathing, preparing meals, shopping, managing finances, etc.?: No Are you currently unemployed and looking for a job?: No Are you interested in more education?: No Please select the resources that you would like help with: None Currently or been in a relationship where the following occur: No concerns reported THRIVE Score: 0 AUDIT C Alcohol Use Questionnaire (AUDIT-C) 1. How often do you have a drink containing alcohol?: Monthly or less 2. How many drinks containing alcohol do you have on a typical day when you are drinking?: 1 or 2 3. How often do you have six or more drinks on one occasion?: Never Total Score: 1 Score Reviewed/Action Taken: Yes HERMELINDA-7 AMB Questionnaire HERMELINDA-7 Date HERMELINDA - 7 assessed: 12/30/24 Feeling nervous, anxious, or on edge: 1 = Several days Not being able to stop or control worryin = Several days Worrying too much about different things: 1 = Several days Trouble relaxin = Not at all Being so restless that it is hard to sit still: 1 = Several days Becoming easily annoyed or irritable: 1 = Several days Feeling afraid as if something awful might happen: 0 = Not at all Total HERMELINDA-7 score (0-4 normal; 5-9 mild; 10-14 moderate; 15-21 severe): 5 Source: Developed by Drs. Richard Copeland, Yane Levi, Chemo Andujar and colleagues, with an educational bob from [employer]. HERMELINDA-7 Assessment Billing HERMELINDA-7 Assessment Tool: HERMELINDA-7 Assessment 30541 Physical exam (Primary Care) Vital Signs: Last Vital Signs Pulse 64 12/30/24 08:32 BP 132/80 12/30/24 08:32 Pulse Ox 100 12/30/24 08:32 Oxygen Delivery Method Room Air 12/30/24 08:32 BMI result Body Mass Index 51.8 Tobacco/Smoking Status: Tobacco use Status Tobacco use date assessed 12/30/24 12/30/24 08:34 Patient Tobacco Use Status Former Tobacco user 12/30/24 08:34 e-Cigarette/Vaping Use Never Used 12/30/24 08:34 PHQ-9: PHQ-9 Score PHQ-9: Total score 8 12/30/24 08:39 Depression Screening Interpretation: Positive Depression Screening Follow-up: Existing condition and Declines treatment Thrive Assessment: Date of Thrive Assessment Date Thrive assessed 12/30/24 12/30/24 08:39 Currently or been in a relationship where the following occur: No concerns reported Coding Level of Care Code Est Pt Level 3 (13408) Diagnoses Anxiety F41.9 Hypertension, unspecified type I10 Hypertension type: unspecified Additional Codes HERMELINDA-7 Assessment Billing - HERMELINDA-7 Assessment Tool: HERMELINDA-7 Assessment 55809 ([id number]) PHQ-9 - 87569 - PHQ-9 Billing: Yes ([id number]) Assessment & Plan Assessment & Plan (1) Anxiety: Code(s): F41.9 - Anxiety disorder, unspecified Category: Medical (2) Hypertension: Code(s): I10 - Essential (primary) hypertension Category: Medical Qualifiers: Hypertension type: unspecified Qualified Code(s): I10 - Essential (primary) hypertension Plan . Orders: Orders Comprehensive [place]. Panel Fast Today F41.9 - Anxiety disorder, unspecified, I10 - Essential (primary) hypertension Lipid Panel Today F41.9 - Anxiety disorder, unspecified, I10 - Essential (primary) hypertension Complete Blood Count Auto Diff Today F41.9 - Anxiety disorder, unspecified, I10 - Essential (primary) hypertension TSH reflex Free T4 Today F41.9 - Anxiety disorder, unspecified, I10 - Essential (primary) hypertension UA CC w/rflx Micro + Cult Today F41.9 - Anxiety disorder, unspecified, I10 - Essential (primary) hypertension
--- OUTSIDE RECORDS SUMMARY | 2024-12-30 08:45 | XMS_ITS | Clinical Summary ---
Author Organization [facility] it Address [address] [place] [address] Care Team Providers Care Director Executive Communications Name Role Phone Unavailable Primary Care Provider [...]
== END 2024-12-30 09:28 | disposition home or self-care (01) ==
LOC: HO.HMCC 08:29
PROVIDERS: PCP Nurse Practitioner Family; Visit Provider Nurse Practitioner Family
DX: F41.9 Anxiety disorder, unspecified (principal); I10 Essential (primary) hypertension

== ENCOUNTER → 2024-12-30 08:29 | Outpatient (BNVA) | payer OTHER, SELFPAY | PROVIDERS: PCP Nurse Practitioner Family; Visit Provider Nurse Practitioner Family | DX: I10 Essential (primary) hypertension (principal); F41.9 Anxiety disorder, unspecified; E66.01 Morbid (severe) obesity due to excess calories; Z68.43 Body mass index [BMI] 50.0-59.9, adult | CPT/HCPCS: 96127; 99212 ==

== ENCOUNTER 2025-01-11 07:49 | Outpatient (AMB) | payer OTHER, SELFPAY ==
--- NOTE | 2025-01-11 07:50 | MHC.OFFVIS ---
Intake Visit Reasons: Follow up 3mo Intake Note: Patient presents 3 month follow up for headaches/hypersomnia. Labs done 10/02/24 and brain MRI done on 10/29/24 Allergies amitriptyline Adverse Reaction (Severe, Verified 01/11/25 07:50) Nightmare propranolol Adverse Reaction (Intermediate, Verified 01/11/25 07:50) Unknown Medication List - Last Reconciled 01/11/25 by CRYSTAL Hager acetaminophen 500 mg PO Q6H PRN blood pressure monitor As directed blood pressure test kit-large As directed clotrimazole-betamethasone 1-0.05 % 1 appl topical BID PRN 2 weeks erenumab-aooe (Aimovig Autoinjector) 140 mg subcut ONCE 30 days levonorgestrel (Mirena) intrauterine lisinopril 5 mg PO DAILY 30 days metoprolol succinate ER 100 mg PO DAILY 30 days rimegepant (Nurtec ODT) 75 mg PO ONCE PRN 30 days MDD 1 tab HPI Comments Details: Right-handed 38-yr-old female presents for televeideo f/u of headache disorder. Pt reports she is having less migraines attacks overall, typically 1-3 times per week. However, last week had 3-4 moderate migraine days, she woke up with these, and nurtec was ineffective for these. V She feels that stress and her weight (0 requires her more effort to do usual activities) contribute to her migraine burden. She has started working with the [facility] weight management clinic. She tried increased Propranolol ER 80mg qhs- but this caused am tiredness. So PCP switched this to Metoprolol. Since, BP has been normotensive with heart rate in low 60s In-lab PSG order was switched to home sleep study as patient was worried her anxiety would prevent her from sleeping in the sleep clinic. 12/23/2024 HST did not show sleep apnea or sleep disordered breathing with AHI less than 1 per hour and O2 maycol 90%, with average SpO2 94%, and snoring recorded for 44% of study time. 11/01/2024, Brain MRI- was unremarkable, other than a nonspecific finding of empty sella 11/22/2024, ophthalmology exam was negative for papilledema or ophthalmoplegia. 10/04/2024 initial HPI: Pt reports she she had headache as long as she can remember. Attacks per month She had been having near daily migraine attacks, however after being started on lisinopril for HTN Tx, the migraine attacks have decreased to proximally 4-5 Her migraine attacks per month. When severe, the migraine attacks take her out . She has never seen neurology before. PMH and ROS are notable for:? General: not right in space dizziness w/wo JEFFERS, motion sickness when she is the passenger in a car. ENT: vision is horrible - i need glasses - does not have an shake sawyer Musculoskeletal disorders or injury: sometimes mid-back pain History of concussion/head injury: Denies Mood d/o: Anxiety, PTSD- rough childhood , ADHD- dx'd as a child- not on tx. No current therapist or psychiatrist. Respiratory d/o: denies CV disease: HTN- just started Propranolol ER 60mg qam, in addition to lisinopril. Has family h/o HTN. Clotting or hematology d/o: Denies Endocrine or metabolic d/o: Denies History of seizure: Denies. History of syncope: Denies : Denies GI d/o: acid reflux at times, IBS- loose stools SAND M[employer] O[employer] CORE SAND: Menses is regular/partner integration planner on Mirena. Family planning: none. Has 2 children (13 and 7 yrs old- both w/ epidural) Family history of migraine or other headache disorder: Father, paternal aunt and uncle, son. Lifestyle considerations: Sleep routine: Usual bedtime: 7-8pm and wake-up time: 5am Sleep difficulties: Endorses: frequent arousals, Snoring, Fatigue, Gasping Arousals, Restless sleep- at onset of lsepe or wakes her up, Leg Cramps- sometimes. Caffeine use: 1.5 cups of coffee per day Substance use: Alcohol- rare, social- prone to flushing from alcohol. 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 Headache questionnaire:? Age/time of onset: childhood Preceding causes: None Previous work-up: None Typical headache characteristics: Prodrome symptoms: Unknown Aura: during severe attacks sees squiggly lines (worms) Pain intensity: moderate-severe Location, quality, characteristics: Starts as a pressure in bilateral occipital region or retro-orbital region. Associated symptoms: photophobia, phonophobia, rarely allodynia, nausea, not right in space dizziness, lightheadedness, fatigue, cognitive difficulties, activity intolerance, generalized weakness, sometimes left eye watering, heart beat pulsating tinnitus. During a headache, having a BM, moving from sitting to standing, or bending over- increases the head pressure. Patient states this positional component started after she had her children and her weight increased. Generally feels better laying down, but this can trigger increased temporal scalp pain- different from the pressure headache. Postdrome: Faded away slowly over a couple of days Triggers: poor sleep, poor fluid intake, skipping caffeine, stress, menstruation- even with mirena in place, hair being up too long Time of day: No specific time of day Duration and Frequency: Prior to starting Lisiniprol, daily to every other day or last a few days. Since, 4-5 times a month, which lasts 1-1.5 days. How does headache impact your life? Has difficulty completing her daily tasks. Current acute medication use/interventions: Naproxen 500mg bid or Tylenol 2000mg tid prn. Current preventative medication use: Lisinopril 5mg qd and just started Propranolol ER 60mg qam. Non-pharmacological interventions: Runs cold water over his wrists. COUNT INCLUDES THE [facility] Medical History Menorrhagia Surgical History No pertinent past surgical history History of section Family History Maternal Grandmother Diabetes Social History Housing: House Patient Tobacco Use Status: Former Tobacco user e-Cigarette/Vaping Use: Never Used Second Hand Smoke Exposure: No service: No Current occupational status: employed Current occupation: [employer] Current occupational exposures/hazards: Yes Cognitive needs: No Hearing needs: No Vision needs: No Physical Exam Const General: cooperative and no acute distress Orientation/consciousness: patient oriented x3 Resp Effort & Inspection: normal respiratory effort and able to speak in complete sentences Neuro General: patient oriented x3 Cognition (Neuro): normal cognition Psych Appearance: grossly normal Mental Status: mental status grossly normal Speech and movement: Normal speech and movement present Affect: normal affect Attitude: cooperative Telehealth Telehealth Telehealth Platform: [employer] Location of provider rendering services: practice address Location of patient: address on file Patient Identification confirmed using: Name, : Yes Telehealth method: video Patient verbally consented to treatment: Yes Patient verbally consented to billing insurance company: Yes Patient informed of any privacy concerns related to visit: Yes Minutes spent on Phone/Video with Pt.: 18 Assessment & Plan Assessment & Plan (1) Migraine with aura: Comment: Visual aura of seeing squiggly lines when migraine attack is severe Code(s): G43.109 - Migraine with aura, not intractable, without status migrainosus Category: Medical (2) Positional headache: Code(s): R51.0 - Headache with orthostatic component, not elsewhere classified Category: Medical (3) Sleep difficulties: Code(s): G47.9 - Sleep disorder, unspecified Category: Medical (4) Hypersomnia: Code(s): G47.10 - Hypersomnia, unspecified Category: Medical (5) Pulsatile tinnitus: Code(s): H93.A9 - Pulsatile tinnitus, unspecified ear Category: Medical (6) Restless leg syndrome: Code(s): G25.81 - Restless legs syndrome Category: Medical (7) Obesity: Code(s): E66.9 - Obesity, unspecified Category: Medical Qualifiers: Obesity type: unspecified obesity type Obesity classification: unspecified obesity classification Serious obesity comorbidity presence: without serious comorbidity Qualified Code(s): E66.9 - Obesity, unspecified Plan Reviewed: Brain MRI w/wo- unremarkable outside of isolated finding of empty sella turcica, which in and of itself does not confer a diagnosis of idiopathic intracranial hypertension HST: No evidence of sleep apnea or nocturnal hypoxemia. There is evidence of frequent snoring. Ophthalmology exam: No evidence of papilledema or other findings suggestive of idiopathic intracranial hypertension. Patient advised to: Check Fasting blood work/labs as ordered- for common etiologies of restless legs syndrome s/s. Follow-up with the weight management as scheduled.- weight loss may improve snoring as well. For overall headache management: Optimize good self-care, including but not limited to maintaining a healthy diet, adequate fluid intake, adequate sleep, and engaging in regular physical activity. Track headaches, especially after treatment regimen changes. Migraine [employer]ho[employer]st is one of many headache tracking apps. Information previously shared on non-pharmacological interventions which may help to alleviate headache attack burden. For light sensitivity: Consider trying blue light filtering glasses, green glasses, green light therapy. For sound sensitivity: Consider trying noise cancellation ear plugs. Neuromodulation devices: which can be used alone or along with pharmacological treatment. For acute headache treatment: It is important to take as needed medications at the first sign of headache, however try to avoid acute medication overuse. Hold NSAIDs (such as ibuprofen, naproxen) for now due to high blood pressure. Continue Rimegepant ODT (Nurtec ODT) 75mg, 1 tab at onset of headache.. Max of 1 tab (75mg) per 24 hours. May take Nurtec with OTC Tylenol 650-1000mg q 4-6 hours as needed. Previous acute migraine medication trials: Tylenol and naproxen-ineffective. Acute migraine medication contraindications: All NSAIDs, triptans, and DHE due to h/o uncontrolled hypertension. For headache prevention medication: Preventative medications should be taken routinely as prescribed for best effect, it may take several weeks for full effect to take effect. Continue lisinopril 5 mg daily in the morning. Continue metoprolol ER 100 mg daily per PCP- for HTN, would not increase further due to heart rate already and low 60s. Start Aimovig 140mg/ml autoinjector, 1ml (140mg) subcutaneous injection once a month. Potential adverse effects of Aimovig include but are not limited to injection site reactions, cramps, constipation, increase in blood pressure. Previous migraine prevention medication trials: Amitriptyline 10 mg q.h.s.-not tolerated, caused excess sedation. Propranolol ER 80 mg-not tolerated, caused morning fatigue/drowsiness. Migraine prevention medication contraindications: Depakote d/t patient is a female of child-bearing age. Will follow-up upon review of above and patient to follow-up in clinic in 6months or sooner prn. Orders: Orders C Reactive Protein Today G25.81 - Restless legs syndrome, I10 - Essential (primary) hypertension, L71.9 - Rosacea, unspecified Medications: New erenumab-aooe (Aimovig Autoinjector) 140 mg subcut ONCE 30 days 1 mL 6RF Coding Level of Care Code Tele Est Pt Level 4 (16424) Diagnoses Migraine with aura G43.109 Positional headache R51.0 Sleep difficulties G47.9 Hypersomnia G47.10 Pulsatile tinnitus H93.A9 Restless leg syndrome G25.81 Obesity without serious comorbidity, unspecified classification, unspecified obesity type E66.9 Obesity type: unspecified obesity type Obesity classification: unspecified obesity classification Serious obesity comorbidity presence: without serious comorbidity
--- OUTSIDE RECORDS SUMMARY | 2025-01-11 07:52 | XMS_ITS | Clinical Summary ---
Author Organization [facility] it Address [address] [place] [address] Care Team Providers Care Chicken Vaccinator Name Role Phone Unavailable Primary Care Provider [...]
== END 2025-01-11 12:50 | disposition home or self-care (01) ==
LOC: HO.HSMS 07:49
PROVIDERS: PCP Nurse Practitioner Family; Visit Provider Nurse Practitioner Family
DX: G43.109 Migraine with aura, not intractable, without status migrainosus (principal); R51.0 Headache with orthostatic component, not elsewhere classified; G47.9 Sleep disorder, unspecified; G47.10 Hypersomnia, unspecified; H93.A3 Pulsatile tinnitus, bilateral; G25.81 Restless legs syndrome; E66.9 Obesity, unspecified
CPT/HCPCS: 99214

== ENCOUNTER → 2025-01-11 07:49 | Outpatient (BNVA) | payer OTHER, SELFPAY | PROVIDERS: PCP Nurse Practitioner Family; Visit Provider Nurse Practitioner Family ==

== ENCOUNTER 2025-01-28 07:57 | Outpatient (AMB) | payer OTHER, SELFPAY ==
--- OUTSIDE RECORDS SUMMARY | 2025-01-28 07:59 | XMS_ITS | Clinical Summary ---
Author Organization [facility] it Address [address] [place] [address] Care Team Providers Care Dental Intern Name Role Phone Unavailable Primary Care Provider [...]
--- NOTE | 2025-01-28 12:03 | A.OFFVIS_ITS ---
VS Expanded 01/28/25 12:13 Height 5 ft 6 in Weight 318 lb 4 oz BMI 51.4 Body Fat % 50.8 Body Fat Mass 161.8 Fat Free Mass 156.6 Visceral Fat Rating 17 Body Water % 35.2 Body Water Mass 112.2 Basal Metabolic Rate/Score 2,284 Intake Visit Reasons: TV [employer] [facility] vs [facility] BMI 51.4 Allergies amitriptyline Adverse Reaction (Severe, Verified 01/28/25 12:03) Nightmare propranolol Adverse Reaction (Intermediate, Verified 01/28/25 12:03) Unknown Medication List - Last Reconciled 01/28/25 by Derik Joe MD acetaminophen 500 mg PO Q6H PRN blood pressure monitor As directed blood pressure test kit-large As directed clotrimazole-betamethasone 1-0.05 % 1 appl topical BID PRN 2 weeks erenumab-aooe (Aimovig Autoinjector) 140 mg subcut ONCE 30 days levonorgestrel (Mirena) intrauterine lisinopril 5 mg PO DAILY 30 days metoprolol succinate ER 100 mg PO DAILY 30 days rimegepant (Nurtec ODT) 75 mg PO ONCE PRN 30 days MDD 1 tab HPI HPI TV [employer] [facility] vs [facility] BMI 51.4: Details: Start time: 11.56am, End time: 12.41pm ?I spent 40 minutes speaking with the patient on the phone plus an additional 5 minutes reviewing and updating records for a total of 45 minutes HPI Comments Details: Previous weight loss efforts: exercise, self diets Wakes up: 5am, Sleeps: 8pm Breakfast: skips Lunch: 11am (sandwich) Dinner: 5pm (chicken, salad or pasta, soup) Snacks: 10am (crackers, nut bars), 4pm (crackers, premade Premier protein shake) Exercise: has home treadmill but does not incline Beverages: Coffee (1 cup/d Starbucks creamer), tea: (3-4/wk, plain), soda: none, juice: none, ETOH: rare PFSH Medical History (Updated 01/28/25 @ 12:07 by Derik Joe MD) Anxiety GERD (gastroesophageal reflux disease) Hypertension Morbid obesity Menorrhagia Surgical History No pertinent past surgical history History of section Family History Maternal Grandmother Diabetes Social History Housing: House Patient Tobacco Use Status: Former Tobacco user e-Cigarette/Vaping Use: Never Used Second Hand Smoke Exposure: No service: No Current occupational status: employed Current occupation: [employer] Current occupational exposures/hazards: Yes Cognitive needs: No Hearing needs: No Vision needs: No Telehealth Telehealth Telehealth Platform: Telephone Location of provider rendering services: practice address Location of patient: address on file Patient Identification confirmed using: Name, : Yes Telehealth method: voice only Patient verbally consented to treatment: Yes Patient verbally consented to billing insurance company: Yes Patient informed of any privacy concerns related to visit: Yes Minutes spent on Phone/Video with Pt.: 45 Assessment & Plan Assessment & Plan (1) Morbid obesity: Code(s): E66.01 - Morbid (severe) obesity due to excess calories Category: Medical Plan: 1.? Plan for lap sleeve gastrectomy. If diaphragmatic or ventral hernias are present at time of surgery, these will be repaired laparoscopically as well. I emphasized the importance of close follow-up, adherence to instructions and good communication. The surgery does not replace the need to change your lifestlyle which is the cause of the obesity problem. The surgery provides the motivation to try again to change your lifestyle, it reduces the appetite and make the transition to a better lifestyle easier and doubles the amount of weight you would lose compared to doing the lifestyle change without the surgery. You will need to be on a liquid diet with protein shakes for 2 weeks before surgery to maximize weight loss and boost your nutritional status to recover better from surgery and also for the first two weeks after surgery to let the stomach heal before we introduce other foods. After the first 2 weeks we will introduce protein bars and soft foods like scrambled eggs, cottage cheese and yogurt and after the 6th week will introduce meat, fish and cooked vegetables in small amounts. Over time you should be able to eat everything in small amounts. Side effects like nausea, vomiting, heartburn or abdominal pain are not common in the practice unless you are not following in the practice. This operation requires lifetime commitment to following in our practice and communication with me. You will much less weight and experience side effects if you don?t communicate or not following in the practice. Complications are rare and in our practice is about 1/10 of the national average. However, you can develop bleeding that may require transfusion (hasn?t happened for year in the practice), you may from complications (we did not have any deaths in the practice) and infections. Infections are usually a result of breakdown in communication or not understanding or following directions correctly. They are difficult to treat, they can happen during the first 6 weeks, they may require to be in the hospital for weeks or even months, not being able to eat by mouth and you may have drains and surgeries to try and correct the issue. Other risks and complications include possible conversion to an open procedure, leaks, small bowel obstruction, blood clots, cardiac, or pulmonary complications, as longwall shearer operator complications such as ulcers, insufficient weight loss and vitamin deficiencies. 2. You will receive a link of our software ryan to generate an individualized nutritional and exercise plan specific for you. Please send me a screenshot of the plans you will generate Meal to include lean meat (beef, fish, pork, turkey, chicken), or khmer yogurt, or egg whites, or beans with a salad with olive oil and fruits (berries, pears, apples, kiwi). Avoid salt, breads, potatoes, rice, pasta, desserts. ?3. If you choose shakes, each shake would be drunk slowly, like coffee in a period of 2 hours. ?4. If you choose bars, cut each bar in 4 pieces and eat each piece in 30min ?to make each bar last 2 hours. ?5. I emphasized the importance of measuring accurately the food portion and measure it when serving the food in plate ?6. The meal portions include a specific number of forks of meat and salad. You always eat the meat portion but you can replace up to half of salad/vegetables portion with rice, potatoes or pasta, or a fruit ?if you like. The less you do it the better weight loss will be. ?7. One full-size fork is what it can be scooped on the fork without falling aside and not what can be bit with the fork. Use regular forks like those you find in a typical restaurant. ?8.? Please buy the body composition scale we discussed and send me weight measurements as soon as possible and then once a week. Always include your diet and exercise plan. 9. The best choice would be to purchase a stationary bike, elliptical or treadmill at home that can track calories, or you could use the walking pad you have. You can create and exercise plan with the Zachary Prell ryan. If you use the walking pad, choose outside walking through the ryan and not the treadmill option. ?10.?It is important of avoiding and for at least 18 months postoperatively and has been discussed at the infosession. ?11. Goal is to lose at least 1.5-2lbs per week ?12. Goal to lose 10% of your weight before surgery, which is about 32lbs. Ultimate weight goal: 286lbs before surgery 13. Please follow the diet plan exactly without any change. If you don't like something about the plan or you feel hungry you need to communicate with me so I can help you revise the plan. You should not change the plan yourself. 14. To be scheduled for EGD to assess the stomach's anatomy. The possibility of biopsies was discussed. Patient needs to avoid use of NSAIDs and aspirin for 1 week prior to EGD. You must be on liquids only the day before your endoscopy. Risks of perforation and bleeding was discussed with the patient. This will be an outpatient procedure with IV sedation. Orders: Orders Insulin Today E66.01 - Morbid (severe) obesity due to excess calories, I10 - Essential (primary) hypertension, K21.9 - Gastro-esophageal reflux disease without esophagitis H Pylori Breath Test Today E66.01 - Morbid (severe) obesity due to excess calories, I10 - Essential (primary) hypertension, K21.9 - Gastro-esophageal reflux disease without esophagitis Complete Blood Count Auto Diff Today E66.01 - Morbid (severe) obesity due to excess calories, I10 - Essential (primary) hypertension, K21.9 - Gastro- esophageal reflux disease without esophagitis Lipid Panel Today E66.01 - Morbid (severe) obesity due to excess calories, I10 - Essential (primary) hypertension, K21.9 - Gastro-esophageal reflux disease without esophagitis IRON PROFILE Today E66.01 - Morbid (severe) obesity due to excess calories, I10 - Essential (primary) hypertension, K21.9 - Gastro-esophageal reflux disease without esophagitis Comprehensive Met. Panel Today E66.01 - Morbid (severe) obesity due to excess calories, I10 - Essential (primary) hypertension, K21.9 - Gastro-esophageal reflux disease without esophagitis Vitamin B12 and Folate Today E66.01 - Morbid (severe) obesity due to excess calories, I10 - Essential (primary) hypertension, K21.9 - Gastro-esophageal reflux disease without esophagitis Zinc Today E66.01 - Morbid (severe) obesity due to excess calories, I10 - Essential (primary) hypertension, K21.9 - Gastro-esophageal reflux disease without esophagitis Vitamin B1 Today E66.01 - Morbid (severe) obesity due to excess calories, I10 - Essential (primary) hypertension, K21.9 - Gastro-esophageal reflux disease without esophagitis Vitamin A Today E66.01 - Morbid (severe) obesity due to excess calories, I10 - Essential (primary) hypertension, K21.9 - Gastro-esophageal reflux disease without esophagitis Ferritin Today E66.01 - Morbid (severe) obesity due to excess calories, I10 - Essential (primary) hypertension, K21.9 - Gastro-esophageal reflux disease without esophagitis ECG 12 lead EKG Today E66.01 - Morbid (severe) obesity due to excess calories, I10 - Essential (primary) hypertension, K21.9 - Gastro-esophageal reflux disease without esophagitis Hemoglobin A1c Today E66.01 - Morbid (severe) obesity due to excess calories, I10 - Essential (primary) hypertension, K21.9 - Gastro-esophageal reflux disease without esophagitis C Reactive Protein Today E66.01 - Morbid (severe) obesity due to excess calories, I10 - Essential (primary) hypertension, K21.9 - Gastro-esophageal reflux disease without esophagitis TSH reflex Free T4 Today E66.01 - Morbid (severe) obesity due to excess calories, I10 - Essential (primary) hypertension, K21.9 - Gastro-esophageal reflux disease without esophagitis Vitamin D 25-OH Total Today E66.01 - Morbid (severe) obesity due to excess calories, I10 - Essential (primary) hypertension, K21.9 - Gastro-esophageal reflux disease without esophagitis US abdomen comp w elastography Today E66.01 - Morbid (severe) obesity due to excess calories, I10 - Essential (primary) hypertension, K21.9 - Gastro- esophageal reflux disease without esophagitis XR chest 2V Today E66.01 - Morbid (severe) obesity due to excess calories, I10 - Essential (primary) hypertension, K21.9 - Gastro-esophageal reflux disease without esophagitis FL upper GI w air Today E66.01 - Morbid (severe) obesity due to excess calories, I10 - Essential (primary) hypertension, K21.9 - Gastro-esophageal reflux disease without esophagitis Referrals Behavioral Health Referral E66.01 - Morbid (severe) obesity due to excess calories, I10 - Essential (primary) hypertension, K21.9 - Gastro-esophageal reflux disease without esophagitis Nutrition/Dietitian Referral E66.01 - Morbid (severe) obesity due to excess calories, I10 - Essential (primary) hypertension, K21.9 - Gastro-esophageal reflux disease without esophagitis
[2025-01-28 12:13] VITALS: BMI 51.4
== END 2025-01-28 12:42 | disposition home or self-care (01) ==
LOC: HO.HBS 07:57
PROVIDERS: PCP Nurse Practitioner Family; Visit Provider Surgery
DX: E66.01 Morbid (severe) obesity due to excess calories (principal)
CPT/HCPCS: 99204

== ENCOUNTER → 2025-01-28 07:57 | Outpatient (BNVA) | payer OTHER, SELFPAY | PROVIDERS: PCP Nurse Practitioner Family; Visit Provider Surgery ==

== ENCOUNTER → 2025-06-01 08:45 | Outpatient (BNVA) | payer OTHER, SELFPAY | PROVIDERS: PCP Nurse Practitioner Family; Visit Provider Emergency Medicine | DX: S63.632A Sprain of interphalangeal joint of right middle finger, initial encounter (principal); W23.0XXA Caught, crushed, jammed, or pinched between moving objects, initial encounter | CPT/HCPCS: 73140; 99202 ==

== ENCOUNTER 2025-07-12 11:49 | Outpatient (REF) | payer OTHER, SELFPAY ==
[2025-07-12 12:51] LABS: MANUAL DIFF FLAG NO
[2025-07-12 13:08] LABS: Hematocrit 42.1 % (37.0-47.0); Hemoglobin 14.6 g/dl (12.0-16.0); Imm Gran Abs Auto 0.07 X10*3/uL (0.00-0.03); Imm Gran Pct Auto 0.7 % (0.0-0.4); Lymphocytes Absolute Auto 2.0 X10*3/uL (1.2-4.9); Mean Corpuscular HGB Conc 34.7 g/dl (31.0-35.0); Mean Corpuscular Hemoglobin 30.9 pg (27.0-33.0); Mean Corpuscular Volume 89.0 fL (80.0-98.0); NRBC Abs Auto 0.000 X10*3/uL (0.0-0.012); NRBC Pct Auto 0.0 /100WBC (0.0-0.2); Platelet Count 270 X10*3/uL (160-400); Red Blood Count 4.73 X10*6/uL (4.20-5.50); White Blood Count 9.4 X10*3/uL (4.8-10.8)
[2025-07-12 13:36] LABS: Alanine Aminotransferase 38 U/L (0-31); Albumin Level 4.7 g/dL (3.5-5.0); Alkaline Phosphatase 81 U/L (39-117); Anion Gap 12 (12-20); Aspartate Amino Transferase 34 U/L (5-31); Blood Urea Nitrogen 9 mg/dL (9-16); Calcium 9.4 mg/dL (8.4-10.2); Carbon Dioxide 26 mmol/L (22-29); Chloride 106 mmol/L (96-108); Cholesterol 174 mg/dL (<200); Estimated Glomerular Filt Rate > 60; HDL Cholesterol 33 mg/dL (>40); Iron 82 mcg/dL (30-160); Magnesium 1.9 mg/dL (1.6-2.6); Percent Iron Saturation 32 % (15-50); Potassium 4.1 mmol/L (3.3-5.1); Sodium 140 mmol/L (135-145); Total Iron Binding Capacity 259 mcg/dL (228-428); Total Protein 7.4 g/dL (6.5-8.0); Triglycerides 92 mg/dL (<150); Unsaturated Iron Binding 177 ug/dL
[2025-07-12 13:44] LABS: Appearance Urine Clear; Glucose Urine UA Negative (Negative); PH 5.5 (5.0-9.0); Specific Gravity - Urine 1.025 (1.005-1.025); UMIC TRIGGER UACC YES
[2025-07-12 13:48] LABS: Ferritin 123 ng/mL (10-122)
--- OUTSIDE RECORDS SUMMARY | 2025-07-12 13:51 | XMS_ITS | Clinical Summary ---
Author Organization [facility] Address [address] [place] [id number] Phone Care Team Providers Care Integrity Director Name Role Phone Erika Manrique MD Primary Care Provid er Allergies No known active allergies Medications albuterol 90 mcg/actuation inhaler Inhale 2 puffs into the lungs every 6 (six) hours as needed for wheezing. 18 g 4 Active predniSONE (DELTASONE) 20 MG tablet Prednisone 20 mg. Dispense #6. Directions 2 pills each day x 3. No refills. Take dose early in the day. Take small meal 30 minutes before and with each dose. 6 tablet 4 Active Active Problems No known active problems Social History Tobacco Use Types Packs/Day Years Used Date Smoking Tobacco: Former Cigarettes Smokeless Tobacco: Never Education Answer Date Recorded Are you interested in more education? Not on alix e 01/18/2024 Are you concerned about learning? Not on file 01/18/2024 No 01/18/2024 No 01/18/2024 Digital Access Answer Date Recorded No 01/18/2024 No 01/18/2024 Reliable internet access at home? Not on file 01/18/2024 Device with a working camera? Not on file Comments Unknown Sex and Gender Information Value Date Recorded Sex Assigned at Not on file Legal Sex Female 1:35 PM EDT Gender Identity Not on file Sexual Orientation Not on file Last Filed Vital Signs Vital Sign Reading Time Taken Comments Blood Pressure 165/92 01/18/2024 2:36 PM EDT Pulse 87 01/18/2024 2:08 PM EDT Temperature 37 C (98.6 F) 01/18/2024 2:08 PM EDT Respiratory Rate 16 01/18/2024 2:08 PM EDT Oxygen Saturation 98% 01/18/2024 2:08 PM EDT Inhaled Oxygen Concentration - - Weight 136.1 kg (300 lb) 01/18/2024 2:08 PM EDT Height 167.6 cm (5' 6 ) 01/18/2024 2:08 PM EDT Body Mass Index 48.42 01/18/2024 2:08 PM EDT Plan of Treatment Health Maintenance Due Date Last Done Comments Adult Td,Tdap Booster 1987 DEPRESSION SCREENING 1999 SMOKING Hx and SMOKELESS TOB ACCO SCREENING 11/23/2000 HEPATITIS C SCREENING 11/23/2005 HIV ONE-TIME SCREENING (18-6 5 YEARS) 11/23/2005 PAP SMEAR 11/23/2008 SCREENING FOR DIABETES 11/23/2022 INFLUENZA VACCINE (#1) 2025 COVID-19 VACCINE ( - 2024-2 6 season) 2025 HEPATITIS A VACCINES Aged Out No long er eligible based on patient's age to complete this topic HIB VACCINES Aged Out No longer eligi ble based on patient's age to complete this topic IPV VACCINES Aged Out No longer eligi ble based on patient's age to complete this topic MENINGOCOCCAL VACCINES (ACWY) Aged Out No longer eligible based on patient's age to complete this topic MENINGOCOCCAL VACCINES (B) Aged Out N o longer eligible based on patient's age to complete this topic PNEUMOCOCCAL VACCINES (0-49 years) Aged Out No longer eligible based on patient's age to complete this topic Medical Devices Not on file Insurance [facility] Care Teams Integrity Director Relationship Specialty Start Date End Date Erika Manrique MD [address] [place] [address] PCP - General Internal Medicine 01/18/24 Additional Source Comments The information contained in this document represents components of the legal health record. It is not the complete legal health record.[facility]
--- OUTSIDE RECORDS SUMMARY | 2025-07-12 13:51 | XMS_ITS | Clinical Summary ---
Author Organization [facility] it Address [address] [place] [address] Care Team Providers Care Medical Transcription Radiology Name Role Phone Unavailable Primary Care Provider [...] Cervical Cancer Screening: P ap Smear 11/23/2008 HPV Vaccines (1 - 3-dose SCD M series) 11/23/2014 Depression Screening 09/01/2024 COVID-19 Vaccine (1 - 2024-2 6 season) 2025 Influenza Vaccine (#1) 2025 DTaP,Tdap,and Td Vaccines (2 - Td or Tdap) 02/07/2027 02/07/2017 RSV Immunization Adult Patie nts (1 - 1-dose 75+ series) 11/23/2062 HIB Vaccines Aged Out No longer eligi [...] 5 Years) and At-Risk Patients (6 to 49 Years) Aged Out No longer eligi ble based on patient's age to complete this topic RSV Immunization Patients Un jolene 20 months Aged Out No longer eligible b ased on patient's age to complete this topic Varicella Vaccines Aged Out No longer eligible based on patient's age to complete this topic
[2025-07-12 14:56] LABS: Folate 7.8 ng/mL (> or = 4.0); Vitamin B12 752 pg/mL (200-900)
[2025-07-15 11:59] LABS: Vitamin D 25-OH, D2 <4 ng/mL; Vitamin D 25-OH, D3 19 ng/mL; Vitamin D 25-OH, Total 19 ng/mL (30-100)
== END 2025-07-12 11:50 | disposition home or self-care (01) ==
LOC: HO.HMGCLDS 11:49
PROVIDERS: Absent Provider Nurse Practitioner Family; PCP Nurse Practitioner Family; Visit Provider Nurse Practitioner Family
DX: I10 Essential (primary) hypertension (principal); G25.81 Restless legs syndrome; N92.0 Excessive and frequent menstruation with regular cycle; F41.9 Anxiety disorder, unspecified; L71.9 Rosacea, unspecified; E66.9 Obesity, unspecified
CPT/HCPCS: 36415; 80053; 80061; 81001; 81003; 82306; 82607; 82728; 82746; 83540; 83735; 84443; 85025; 85652; 86140; 86141

== ENCOUNTER 2025-07-20 10:16 | Outpatient (AMB) | payer OTHER, SELFPAY ==
--- NOTE | 2025-07-20 10:32 | A.OFFPC_ITS ---
Vital Signs 07/20/25 10:33 07/20/25 10:54 Height 5 ft 6 in Weight 308 lb BMI 49.7 BP 128/78 Blood Pressure Location Rt brachial Position Sitting Respiration 16 Pulse 52 62 Pulse Source Pulse Oximeter Temp 98.0 F Temp Source Oral Pulse Oximetry (%) 98 Oxygen Delivery Method Room Air Intake Visit Reasons: PE Credit Analysis Manager Required: No Accompanied by: Self / Same As Patient Allergies amitriptyline Adverse Reaction (Severe, Verified 07/20/25 11:03) Nightmare propranolol Adverse Reaction (Intermediate, Verified 07/20/25 11:03) Unknown Medication List - Last Reconciled 07/20/25 by Ritchie Argueta, [employer]- acetaminophen 500 mg PO Q6H PRN blood pressure monitor As directed blood pressure test kit-large As directed clotrimazole-betamethasone 1-0.05 % 1 appl topical BID PRN 2 weeks coenzyme Q10 400 mg PO DAILY 90 days erenumab-aooe (Aimovig Autoinjector) 140 mg subcut ONCE 30 days levonorgestrel (Mirena) intrauterine lisinopril 5 mg PO DAILY metoprolol succinate ER 100 mg PO DAILY 30 days riboflavin (vitamin B2) 400 mg PO DAILY 90 days rimegepant (Nurtec ODT) 75 mg PO ONCE PRN 30 days MDD 1 tab Tobacco use date assessed: 07/20/25 Dental Screening Dental Screen Date: 07/20/25 Did you have a dental visit in the last 12 months?: Yes Did you have a dental problem in the last 6 months where you did not have access to dental care?: No Was dental information given to patient?: Patient has dentist HPI PE HPI Details History of Present Illness The patient is a 39-year-old female presenting for a physical exam. She has a history of morbid obesity. Recent laboratory studies revealed slightly elevated liver enzymes, with a suspicion for nonalcoholic fatty liver disease. Health Maintenance A repeat urinalysis will be performed as part of routine health screening. encouraged regular pap smears Social History - Substance use: Patient reports she schmidt s not drink alcohol at all or does not drink often. Review of Systems - Cardiovascular: Denies chest pain. - Respiratory: Denies shortness of breat h. - Gastrointestinal: Denies abdominal julius n, blood in stool, constipation, or diarrhea. - Genitourinary: Denies symptoms of a ur inary tract infection. - Head/ENT: Denies sinus symptoms. Physical Exam General: Cooperative, healthy appearing, comfortable, no acute distress and well developed, morbidly obese Orientation: Patient oriented x3 Limitations: No limitations Head: Normal to inspection Ears: Hearing grossly normal bilaterally Nose: Normal external nose present Face and sinus: Normal facial exam Eyes: Appearance normal, both eyes and all related structures Neck: Normal visual inspection and Yes full ROM Respiratory: Normal respiratory effort and able to speak in complete sentences. Clear to auscultation bilaterally Cardiovascular: Regular rate and rhythm. Normal S1 and S2 GI: Normal to inspection. Soft to palpation and nontender, morbidly obese Skin: No rashes or lesions noted Neuro: Patient oriented x3 Extremities: Normal to inspection Results - Labs: Recent labs show slightly elevat ed liver enzymes. Plan 1. Elevated Liver Enzymes The patient has slightly elevated liver enzymes, which are suspected to be from nonalcoholic fatty liver disease given her morbid obesity and lack of significant alcohol use. To further evaluate, an abdominal ultrasound will be ordered. A hepatitis panel for hepatitis A, B, and C will also be obtained to rule out infectious causes. Liver enzymes will be rechecked in a couple of months for monitoring. 2. PE Discussion Notes I discussed with the patient that her recent labs show slightly elevated liver enzymes. I explained that this is most likely due to nonalcoholic fatty liver disease. I recommended an abdominal ultrasound and a hepatitis screen, which checks for hepatitis A, B, and C, as a standard workup for elevated liver en zymes to ensure we catch any potential issues early. I also informed her that we will repeat her labs in a couple of months to monitor her liver enzymes and will also repeat a urine test. Patient Instructions - We will order an ultrasound of your ab domen to check your liver. - We will order a blood test to screen f or hepatitis. - We plan to recheck your liver labs in a couple of months. - We will also repeat a urine test. [facility] Medical History Anxiety GERD (gastroesophageal reflux disease) Hypertension Morbid obesity Menorrhagia Surgical History No pertinent past surgical history History of section Family History Maternal Grandmother Diabetes Social History Housing: House Patient Tobacco Use Status: Former Tobacco user e-Cigarette/Vaping Use: Never Used Second Hand Smoke Exposure: No service: No Current occupational status: employed Current occupation: [employer] Current occupational exposures/hazards: Yes Cognitive needs: No Hearing needs: No Vision needs: No Questionnaire PHQ-9 Over the last 2 weeks, how often have you been bothered by any of the following problems? 1. Little interest or pleasure in doing things: not at all 2. Feeling down, depressed, or hopeless: not at all 3. Trouble falling or staying asleep, or sleeping too much: not at all 4. Feeling tired or having little energy: not at all 5. Poor appetite or overeating: not at all 6. Feeling bad about yourself - or that you are a failure or have let yourself or your family down: not at all 7. Trouble concentrating on things, such as reading the newspaper or watching television: not at all 8. Moving or speaking so slowly that other people could have noticed. Or the opposite - being so fidgety or restless that you have been moving around a lot more than usual: not at all 9. Thoughts that you would be better off or of hurting yourself in some wa y: not at all Total score: 0 Depression Screening Interpretation: Negative Depression Screening Done: Yes 65807 - PHQ-9 Billing: Yes Source: Developed by Drs. Richard Copeland, Yane Levi, Chemo Andujar and colleagues, with an educational bob from [employer]. Thrive Questionnaire Date Thrive assessed: 12/23/24 I am a: Patient What is your living situation today?: I have a steady place to live Within the past 12 months, did the food you bought not last and you didn't have the money to get more?: Never true Within the past 12 months, did you worry whether your food would run out before you got money to buy more?: Never true Do you have trouble paying for medicines?: No Do you have trouble getting transportation to medical appointments?: No Do you have trouble paying your heating and electricity bill?: No Do you have trouble taking care of your child, family member or friend?: No Do you have trouble with day-to-day activities such as bathing, preparing meals, shopping, managing finances, etc.?: No Are you currently unemployed and looking for a job?: No Are you interested in more education?: No Please select the resources that you would like help with: None Currently or been in a relationship where the following occur: No concerns reported THRIVE Score: 0 HERMELINDA-7 AMB Questionnaire HERMELINDA-7 Date HERMELINDA - 7 assessed: 07/20/25 Feeling nervous, anxious, or on edge: 0 = Not at all Not being able to stop or control worryin = Not at all Worrying too much about different things: 0 = Not at all Trouble relaxin = Not at all Being so restless that it is hard to sit still: 0 = Not at all Becoming easily annoyed or irritable: 0 = Not at all Feeling afraid as if something awful might happen: 0 = Not at all Total HERMELINDA-7 score (0-4 normal; 5-9 mild; 10-14 moderate; 15-21 severe): 0 Source: Developed by Drs. Richard Copeland, Yane Levi, Chemo Andujar and colleagues, with an educational bob from [employer]. HERMELINDA-7 Assessment Billing HERMELINDA-7 Assessment Tool: HERMELINDA-7 Assessment 23487 Physical exam (Primary Care) Vital Signs: Last Vital Signs Temp 98.0 F 07/20/25 10:33 Pulse 52 07/20/25 10:33 Resp 16 07/20/25 10:33 BP 128/78 07/20/25 10:33 Pulse Ox 98 07/20/25 10:33 Oxygen Delivery Method Room Air 07/20/25 10:33 BMI result Body Mass Index 49.7 Tobacco/Smoking Status: Tobacco use Status Tobacco use date assessed 07/20/25 07/20/25 10:37 Patient Tobacco Use Status Former Tobacco user 07/20/25 10:37 e-Cigarette/Vaping Use Never Used 07/20/25 10:37 PHQ-9: PHQ-9 Score PHQ-9: Total score 0 07/20/25 10:37 Depression Screening Interpretation: Negative Thrive Assessment: Date of Thrive Assessment Date Thrive assessed 12/23/24 07/20/25 10:37 Currently or been in a relationship where the following occur: No concerns reported Coding Level of Care Code Est Pt Level 3 (41187) Est Pt Prev Care 18-39y(58426) Diagnoses Physical exam Z00.00 Elevated liver enzymes R74.8 Additional Codes HERMELINDA-7 Assessment Billing - HERMELINDA-7 Assessment Tool: HERMELINDA-7 Assessment 24796 ([id number]) PHQ-9 - 23097 - PHQ-9 Billing: Yes ([id number]) Assessment & Plan Assessment & Plan (1) Physical exam: Code(s): Z00.00 - Encounter for general adult medical examination without abnormal findings Category: Medical (2) Elevated liver enzymes: Code(s): R74.8 - Abnormal levels of other serum enzymes Category: Medical Plan . Orders: Orders UA CC w/rflx Micro + Cult Today Z00.00 - Encounter for general adult medical examination without abnormal findings US abdomen complete Today R74.8 - Abnormal levels of other serum enzymes Comprehensive Met. Panel Today R74.8 - Abnormal levels of other serum enzymes Hepatitis A,B,C Profile Today R74.8 - Abnormal levels of other serum enzymes
[2025-07-20 10:33] VITALS: BP 128/78; PULSE 52; RESP 16; TEMP 36.7; O2SAT 98; BMI 49.7
[2025-07-20 10:54] VITALS: PULSE 62
--- OUTSIDE RECORDS SUMMARY | 2025-07-20 19:42 | XMS_ITS | Clinical Summary ---
Author Organization [facility] it Address [address] [place] [address] Care Team Providers Care Leg Breaker Name Role Phone Unavailable Primary Care Provider [...]
--- OUTSIDE RECORDS SUMMARY | 2025-07-20 19:42 | XMS_ITS | Clinical Summary ---
Author Organization [facility] Address [address] [place] [id number] Phone Care Team Providers Care Gyroscope Technician Name Role Phone Erika Manrique MD Primary [...] topic Medical Devices Not on file Insurance [facility] Care Teams Gyroscope Technician Relationship Specialty Start Date End Date Erika Manrique MD [address] [place] [address] PCP - General Internal Medicine 01/18/24 Additional Source Comments The information contained in this document represents components of the legal health record. It is not the complete legal health record.[facility]
== END 2025-07-20 10:59 | disposition home or self-care (01) ==
LOC: HO.HMCC 10:16
PROVIDERS: PCP Nurse Practitioner Family; Visit Provider Nurse Practitioner Family
DX: Z00.00 Encounter for general adult medical examination without abnormal findings (principal); R74.8 Abnormal levels of other serum enzymes

== ENCOUNTER → 2025-07-20 10:16 | Outpatient (BNVA) | payer OTHER, SELFPAY | PROVIDERS: PCP Nurse Practitioner Family; Visit Provider Nurse Practitioner Family | DX: Z00.00 Encounter for general adult medical examination without abnormal findings (principal); R74.8 Abnormal levels of other serum enzymes | CPT/HCPCS: 96127; 99212; 99395 ==